=== PATIENT | female | born 1935 | race Caucasian/White ===

== ENCOUNTER 2016-12-24 08:31 | Emergency (ER) | payer MEDICARE, BC ==
[2016-12-24 08:49] VITALS: BP 142/65
--- NOTE | 2016-12-24 09:36 | UC ---
Abdominal Pain Female HPI - HPI Summary HPI Summary: 81 yo female with the onset of diarrhea 36 hours ago Had 4 episodes of large volume liquid stools this was followed by 4 episodes of vomiting no v/d past 24 hours having a hard time tolerating liquids/solids due to nausea no abd pain no f/c - History of Current Complaint Chief Complaint: UCGI Stated Complaint: VOMITING, AND DIARRHEA Time Seen by Provider: 12/24/16 09:26 Hx Obtained From: Patient Onset/Duration: Sudden Onset, Lasting Hours Timing: Constant Severity Initially: Severe Severity Currently: None Pain Intensity: 0 Pain Scale Used: 0-10 Numeric Location: Other - no abd pain Character: Other - NA Aggravating Factor(s): Food - anorexic due to nausea Alleviating Factor(s): Spontaneous Resolution Associated Signs and Symptoms: Positive: Nausea Allergies/Adverse Reactions: Allergies Allergy/AdvReac Type Severity Reaction Status Date / Time Amoxicillin Allergy Mild Hives Verified 10/02/13 14:14 Sulfa Antibiotics Allergy Hives Verified 12/24/16 08:49 PMH/Surg Hx/FS Hx/Imm Hx Previously Healthy: Yes Endocrine History Of: Reports: Thyroid Disease Denies: Diabetes Cardiovascular History Of: Reports: Hypertension Denies: Cardiac Disorders Respiratory History Of: Denies: COPD, Asthma GI/ History Of: Denies: Ulcer Cancer History Of: Denies: Breast Cancer - Surgical History Surgical History: Yes Surgery Procedure, Year, and Place: OOPHERECTOMY RIGHT,BENIGN BREAST BIOPSIES, WRIST GANGLION CYST, APPENDECTOMY - Family History Known Family History: Positive: Hypertension - Social History Alcohol Use: None Substance Use Type: None Smoking Status (MU): Former Smoker Review of Systems Constitutional: Fatigue Skin: Negative Eyes: Negative ENT: Negative Respiratory: Negative Cardiovascular: Negative Gastrointestinal: Other - nausea only , vomiting and diarrrhea have resolved Genitourinary: Negative Motor: Negative Neurovascular: Negative Musculoskeletal: Negative Neurological: Negative Psychological: Negative All Other Systems Reviewed And Are Negative: Yes Physical Exam Triage Information Reviewed: Yes Appearance: Well-Appearing, No Pain Distress, Well-Nourished Vital Signs: Initial Vital Signs Temp 97.6 F 12/24/16 08:47 Pulse 81 12/24/16 08:47 Resp 18 12/24/16 08:47 BP 142/65 12/24/16 08:47 Pulse Ox 96 12/24/16 08:47 Vital Signs Reviewed: Yes Eyes: Positive: Conjunctiva Clear ENT: Positive: Hearing grossly normal. Negative: Nasal congestion, Nasal drainage, Trismus, Muffled/hoarse voice Neck: Positive: Supple, Nontender Respiratory: Positive: Lungs clear, Normal breath sounds, No respiratory distress, No accessory muscle use Cardiovascular: Positive: RRR, No Murmur Musculoskeletal: Positive: ROM Intact, No Edema Neurological: Positive: Alert Psychological Exam: Normal Skin Exam: Normal Abd Pain Female Course/Dx - Differential Dx/Diagnosis Provider Diagnoses: gastroenteritis Discharge - Discharge Plan Condition: Stable Disposition: HOME Prescriptions: Ondansetron TAB* [Zofran Tab*] 4 mg PO Q6H PRN #10 tab PRN Reason: Nausea Patient Education Materials: Gastroenteritis (ED) Referrals: Sabino Babcock MD [Primary Care Provider] - Additional Instructions: recheck in 24 hours if not able to tolerate liquids/solids better recheck for new or worsening symptoms
[2016-12-24] MEDS ORDERED: Ondansetron ODT TAB* 4 MG PO ONE (09:37)
== END 2016-12-24 10:15 | disposition home or self-care (01) ==
LOC: UCEAST 08:31
DX: K52.9 Noninfective gastroenteritis and colitis, unspecified (principal); I10 Essential (primary) hypertension
CPT/HCPCS: 99202; G0463

== ENCOUNTER 2017-11-28 07:08 | Emergency (ER) | payer MEDICARE, BC ==
[2017-11-28 07:31] VITALS: BP 169/74
--- NOTE | 2017-11-28 08:20 | UC ---
Complaint Female HPI - HPI Summary HPI Summary: 82 yo WF c/o lower abd pressure and LBP associated with foul smelling urine x few days, denies f/c/dysuria but feels similar to prvious UTI - History Of Current Complaint Chief Complaint: UCBackPain Stated Complaint: PRESSURE UPON URINATION Time Seen by Provider: 11/28/17 07:44 Hx Obtained From: Patient ?: Yes Severity Initially: Moderate Severity Currently: Moderate Pain Intensity: 3 Character: Dull Aggravating Factor(s): Urination - Allergies/Home Medications Allergies/Adverse Reactions: Allergies Allergy/AdvReac Type Severity Reaction Status Date / Time amoxicillin Allergy Hives Verified 11/28/17 07:32 Sulfa (Sulfonamide Allergy Hives Verified 11/28/17 07:32 Antibiotics) PMH/Surg Hx/FS Hx/Imm Hx Previously Healthy: Yes - Surgical History Surgical History: Yes Surgery Procedure, Year, and Place: OOPHERECTOMY RIGHT,BENIGN BREAST BIOPSIES, WRIST GANGLION CYST, APPENDECTOMY - Family History Known Family History: Positive: Hypertension - Social History Alcohol Use: None Substance Use Type: None Smoking Status (MU): Former Smoker Review of Systems Constitutional: Negative Skin: Negative Eyes: Negative ENT: Negative Respiratory: Negative Cardiovascular: Negative Gastrointestinal: Negative Genitourinary: Other - lower abd pain Motor: Negative Neurovascular: Negative Musculoskeletal: Negative Neurological: Negative Psychological: Negative All Other Systems Reviewed And Are Negative: Yes Physical Exam Triage Information Reviewed: Yes Appearance: Well-Appearing Vital Signs: Initial Vital Signs Temp 36.1 C 11/28/17 07:29 Pulse 88 11/28/17 07:29 Resp 16 11/28/17 07:29 BP 169/74 11/28/17 07:29 Pulse Ox 98 11/28/17 07:29 Eye Exam: Normal ENT Exam: Normal Dental Exam: Normal Neck exam: Normal Neck: Positive: 1 Respiratory Exam: Normal Cardiovascular Exam: Normal Abdomen Description: Positive: Soft, Other: - suprapubic tenderness. Negative: CVA Tenderness (R), CVA Tenderness (L) Musculoskeletal Exam: Normal Neurological Exam: Normal Psychological Exam: Normal Skin Exam: Normal Complaint Female Dx - Course Course Of Treatment: UA positive for trace blood, elevated pH of 7, foul smelling - Differential Dx/Diagnosis Differential Diagnosis/HQI/PQRI: Urinary Tract Infection Provider Diagnoses: Acute cystitis. Elevated BP in acute illness Discharge - Discharge Plan Condition: Stable Disposition: HOME Prescriptions: Ciprofloxacin TAB* [Cipro 500 MG TAB*] 500 mg PO BID 7 Days #14 tab Patient Education Materials: Urinary Tract Infection in Older Adults (ED) Referrals: Sabino Babcock MD [Primary Care Provider] - Additional Instructions: go to ER if symptoms worsen
--- NOTE | 2017-11-29 16:05 | PN ---
Progress Note - Progress Note Date of Service: 11/29/17 Note: Cultures returned no growth, OK to stop abx/ cipro, nurse to call patient. - Jasmyne Lin PAC
== END 2017-11-28 08:22 | disposition home or self-care (01) ==
LOC: UCEAST 07:08
DX: N30.00 Acute cystitis without hematuria (principal); R03.0 Elevated blood-pressure reading, without diagnosis of hypertension; Z87.891 Personal history of nicotine dependence; Z88.3 Allergy status to other anti-infective agents; Z88.0 Allergy status to penicillin
CPT/HCPCS: 81003; 87086; 99212; G0463

== ENCOUNTER 2018-12-17 07:50 | Emergency (ER) | payer MEDICARE, BC ==
[2018-12-17 07:57] VITALS: BP 152/70
--- NOTE | 2018-12-17 09:04 | UC ---
Complaint Female HPI - HPI Summary HPI Summary: Woke up at 5 AM today with dysuria, frequency and urgency. No fever, nausea, back pain. - History Of Current Complaint Chief Complaint: UCGU Stated Complaint: URINARY COMPLAINT Time Seen by Provider: 12/17/18 08:41 Hx Obtained From: Patient Onset/Duration: Gradual Onset, Lasting Hours, Still Present Timing: Constant Severity Initially: Moderate Severity Currently: Moderate Pain Intensity: 4 Pain Scale Used: 0-10 Numeric Character: Burning Aggravating Factor(s): Urination Alleviating Factor(s): Nothing Associated Signs And Symptoms: Negative: Fever, Back Pain, Vaginal Bleeding/ Discharge, Nausea - Allergies/Home Medications Allergies/Adverse Reactions: Allergies Allergy/AdvReac Type Severity Reaction Status Date / Time amoxicillin Allergy Hives Verified 12/17/18 07:57 Sulfa (Sulfonamide Allergy Hives Verified 12/17/18 07:57 Antibiotics) PMH/Surg Hx/FS Hx/Imm Hx Endocrine History: Hypothyroidism Cardiovascular History: Hypertension - Surgical History Surgical History: Yes Surgery Procedure, Year, and Place: OOPHERECTOMY RIGHT,BENIGN BREAST BIOPSIES, WRIST GANGLION CYST, APPENDECTOMY - Family History Known Family History: Positive: Hypertension - Social History Alcohol Use: None Substance Use Type: None Smoking Status (MU): Former Smoker Review of Systems All Other Systems Reviewed And Are Negative: Yes Constitutional: Positive: Negative Respiratory: Positive: Negative Cardiovascular: Positive: Negative Gastrointestinal: Positive: Negative Genitourinary: Positive: Dysuria, Frequency, Urgency Physical Exam Triage Information Reviewed: Yes Appearance: Well-Appearing, No Pain Distress, Well-Nourished Vital Signs: Initial Vital Signs Temp 97.4 F 12/17/18 07:54 Pulse 88 12/17/18 07:54 Resp 18 12/17/18 07:54 BP 152/70 12/17/18 07:54 Pulse Ox 97 12/17/18 07:54 Laboratory Tests 12/17/18 08:30 POC Urine Color Yellow POC Urine Clarity Cloudy POC Urine pH 6.0 POC Ur Specif [place] 1.020 POC Urine Protein 1+ A POC Ur Glucose (UA) Negative POC Urine Ketones Negative POC Urine Blood 3+ A POC Urine Nitrite Negative POC Urine Bilirubin Negative POC Urine Urobilinogen 0.2 POC U Leukocyte Esteras 3+ A Vital Signs Reviewed: Yes Eyes: Positive: Conjunctiva Clear ENT: Positive: Hearing grossly normal Neck: Positive: Supple Respiratory: Positive: No respiratory distress, No accessory muscle use Cardiovascular: Positive: Pulses Normal Abdomen Description: Positive: Nontender, Soft. Negative: CVA Tenderness (R), CVA Tenderness (L), Distended, Guarding Musculoskeletal: Positive: No Edema Neurological: Positive: Alert Psychological: Positive: Age Appropriate Behavior Skin: Negative: Rashes Complaint Female Dx - Differential Dx/Diagnosis Provider Diagnosis: UTI (urinary tract infection) Discharge - Sign-Out/Discharge Documenting (check all that apply): Patient Departure All imaging exams completed and their final reports reviewed: No Studies - Discharge Plan Condition: Stable Disposition: HOME Prescriptions: Ciprofloxacin TAB* [Cipro 500 MG TAB*] 500 mg PO BID #10 tab Phenazopyridine TAB* [Pyridium TAB*] 200 mg PO TID #6 tab Patient Education Materials: Urinary Tract Infection in Women (ED) Referrals: Sabino Babcock MD [Primary Care Provider] - If Needed Additional Instructions: TAKE THE ANTIBIOTICS TWICE DAILY TO COVER FOR UTI. URINE WILL BE SENT FOR CULTURE. WE WILL CALL YOU IF YOUR MEDICATION NEEDS TO BE ADJUSTED. CONSIDER DISCUSSING WITH YOUR PCP/UROLOGIST WHETHER OR NOT YOUR MEDICINE FOR OVERACTIVE BLADDER MAY BE INCREASING YOUR RISK FOR DEVELOPING RECURRENT UTI. - Billing Disposition and Condition Condition: STABLE Disposition: Home
--- NOTE | 2018-12-18 17:22 | UC ---
- Progress Note Progress Note: 12/18/2018 Urine culture: no growth Please call back patient and notify her of result. Advised to stop Ciprofloxacin PO Thank you Susan Lorenzo PA-C Course/Dx - Diagnoses Provider Diagnoses: UTI (urinary tract infection) Discharge - Sign-Out/Discharge Documenting (check all that apply): Post-Discharge Follow Up All imaging exams completed and their final reports reviewed: No Studies - Discharge Plan Condition: Stable Disposition: HOME Prescriptions: Ciprofloxacin TAB* [Cipro 500 MG TAB*] 500 mg PO BID #10 tab Phenazopyridine TAB* [Pyridium TAB*] 200 mg PO TID #6 tab Patient Education Materials: Urinary Tract Infection in Women (ED) Referrals: Sabino Babcock MD [Primary Care Provider] - If Needed Additional Instructions: TAKE THE ANTIBIOTICS TWICE DAILY TO COVER FOR UTI. URINE WILL BE SENT FOR CULTURE. WE WILL CALL YOU IF YOUR MEDICATION NEEDS TO BE ADJUSTED. CONSIDER DISCUSSING WITH YOUR PCP/UROLOGIST WHETHER OR NOT YOUR MEDICINE FOR OVERACTIVE BLADDER MAY BE INCREASING YOUR RISK FOR DEVELOPING RECURRENT UTI. - Billing Disposition and Condition Condition: STABLE Disposition: Home
== END 2018-12-17 09:10 | disposition home or self-care (01) ==
LOC: UCEAST 07:50
DX: N39.0 Urinary tract infection, site not specified (principal); I10 Essential (primary) hypertension; Z88.0 Allergy status to penicillin; Z88.2 Allergy status to sulfonamides; Z87.891 Personal history of nicotine dependence
CPT/HCPCS: 81003; 87086; 99212; G0463

== ENCOUNTER 2019-02-07 08:57 | Emergency (ER) | payer MEDICARE, BC ==
[2019-02-07 09:07] VITALS: BP 114/63
--- NOTE | 2019-02-07 09:29 | UC ---
General HPI - HPI Summary HPI Summary: Here c/o progressively worsening left wrist pain. Has osteoarthritis and is followed by Dr. Nails. Pain on lateral side has gotten significantly worse and has limited her range of motion and ability to do things. Denies any trauma or any specific overuse injury. meds; reviewed - History of Current Complaint Chief Complaint: UCUpperExtremity Stated Complaint: LT WRIST INJURY Time Seen by Provider: 02/07/19 09:22 Pain Intensity: 9 - Allergy/Home Medications Allergies/Adverse Reactions: Allergies Allergy/AdvReac Type Severity Reaction Status Date / Time amoxicillin Allergy Hives Verified 02/07/19 09:07 Sulfa (Sulfonamide Allergy Hives Verified 02/07/19 09:07 Antibiotics) PMH/Surg Hx/FS Hx/Imm Hx Previously Healthy: Yes Endocrine History: Hypothyroidism Cardiovascular History: Hypertension - Surgical History Surgical History: Yes Surgery Procedure, Year, and Place: OOPHERECTOMY RIGHT,BENIGN BREAST BIOPSIES, WRIST GANGLION CYST, APPENDECTOMY - Family History Known Family History: Positive: Hypertension - Social History Alcohol Use: None Substance Use Type: None Smoking Status (MU): Former Smoker Review of Systems All Other Systems Reviewed And Are Negative: Yes Musculoskeletal: Positive: Decreased ROM Physical Exam Triage Information Reviewed: Yes Appearance: Well-Appearing Vital Signs: Initial Vital Signs Temp 97.8 F 02/07/19 09:05 Pulse 84 02/07/19 09:05 Resp 17 02/07/19 09:05 BP 114/63 02/07/19 09:05 Pulse Ox 100 02/07/19 09:05 Vital Signs Reviewed: Yes Musculoskeletal: Positive: Other: - left wrist, mild edema and pain with palpation over ulnar carpal region, limited ROM due to pain. good radial ulnar pulses. Good hand and digit movement. Diagnostics - Radiology left wrist Radiology Interpretation Completed By: Radiologist Summary of Radiographic Findings: Osteopenia, osteoarthritis, no acute fracture , but could have occult fracture Course/Dx - Course Course Of Treatment: This is an 83 yr old with left wrist pain Left wrist xray no over fracture Wrist sprain - ?occult fracture Plan Recommed wearing brace during the day as tolerated Continue TYlenol as needed for pain Start Naproxen 2x/day - take with food Recommend follow up with orthopedics if pain persists - Diagnoses Provider Diagnosis: Wrist pain Discharge - Sign-Out/Discharge Documenting (check all that apply): Patient Departure All imaging exams completed and their final reports reviewed: No Studies - Discharge Plan Condition: Good Disposition: HOME Patient Education Materials: Wrist Sprain (ED) Referrals: Sabino Babcock MD [Primary Care Provider] - Shari Jaimes MD [Medical Doctor] - Additional Instructions: Recommed wearing brace during the day as tolerated Continue TYlenol as needed for pain Start Naproxen 2x/day - take with food Recommend follow up with orthopedics if pain persists - Billing Disposition and Condition Condition: GOOD Disposition: Home
--- NOTE | 2019-02-08 10:30 | UC ---
- Progress Note Progress Note: PROVIDER AWARE OF RADIOLOGIST READING Course/Dx - Diagnoses Provider Diagnoses: Wrist pain Discharge - Sign-Out/Discharge Documenting (check all that apply): Patient Departure All imaging exams completed and their final reports reviewed: Yes - Discharge Plan Condition: Good Disposition: HOME Prescriptions: Naproxen [Naproxen 500 mg tab] 500 mg PO BID #28 tablet Patient Education Materials: Wrist Sprain (ED) Referrals: Sabino Babcock MD [Primary Care Provider] - Shari Jaimes MD [Medical Doctor] - Additional Instructions: Recommed wearing brace during the day as tolerated Continue TYlenol as needed for pain Start Naproxen 2x/day - take with food Recommend follow up with orthopedics if pain persists - Billing Disposition and Condition Condition: GOOD Disposition: Home
== END 2019-02-07 10:12 | disposition home or self-care (01) ==
LOC: UCEAST 08:57
DX: M25.532 Pain in left wrist (principal); M19.90 Unspecified osteoarthritis, unspecified site; I10 Essential (primary) hypertension; Z88.0 Allergy status to penicillin; Z88.2 Allergy status to sulfonamides
CPT/HCPCS: 99213; G0463

== ENCOUNTER 2019-04-27 07:06 | Emergency (ER) | payer MEDICARE, BC ==
--- OUTSIDE RECORDS SUMMARY | 2019-04-27 07:12 | XMS REPORT | Continuity of Care Document ---
:1935 External Reference #:[id number] Author Name Ban Collins Care Team Providers Name Role Phone Sabino Babcock MD Primary Care Physician Unavailable Payers Date Identification Numbers Payment Provider Subscriber Policy Number: [id number] Medicare Zoe Roe PayID: [id number] [address] [place] [address] Policy Number: [id number] [employer] Zoe Roe PayID: [id number] [address] [address] [place] [address] Family History Date Family Member(s) Observation Comments General Coronary Artery Disease (CAD) Father Rheumatoid arthritis Father age 84 Mother Heart Disease Mother age 75 Social History Type Date Description Comments Sex Unknown Marital Status Lives With Occupation Retired Tobacco Use Start: Unknown End: Former Cigarette Smoker quit 1963 Unknown Smoking Status Reviewed: 04/12/19 Former Cigarette Smoker quit 1963 ETOH Use Denies alcohol use Recreational Drug Use Never Used Drugs Tobacco Use Start: Unknown End: Patient is a former quit smoking at age Unknown smoker 30 Exercise Type/Frequency Exercises regularly Allergies, Adverse Reactions, Alerts Active Allergies Reaction Severity Comments Date Sulfa Antibiotics 11/19/2014 Amoxil 11/19/2014 Trimox 11/19/2014 Statins 11/19/2014 Medications Active Medications SIG Qnty Indications Ordering Provider Date Vitamin B12 1 by mouth every 90tabs E53.9 Christiane Fernandez, 05/11/2018 1000mcg day DELI COOK Tablets ER Meclizine HCL please once or 30tabs A88.1 Mirza Nails, 07/28/2017 25mg twice daily daily M.D. Tablets as needed for vertigo Nasonex 2 sprays to each Unknown 50mcg/Act nostril twice Suspension daily prn Synthroid 1 by mouth every Unknown 100mcg day Tablets Dyazide 1 by mouth every Unknown 37.5-25mg day as needed Capsules Detrol 1 by mouth every Unknown 2mg Tablets day Acyclovir 1 by mouth daily Unknown 200mg Capsules Vagifem by way of vagina Unknown 10mcg Tablets twice a week (with applicator) Vit D po qd Unknown 1000Iu History Medications Hydroxychloroquine take one tablet 120tabs M35.3 Zsofia 10/24/2018 - Sulfate by mouth daily [facility] 10/30/2018 200mg Tablets for 1 week then 1 tab twice a day Prednisone 2 tabs po daily 30tabs Zsofia 08/04/2018 - 10mg Tablets for 7 days, then [facility] 08/10/2018 reduce to 1 tab daily until follow up visit Prednisone 2 tab po daily 90tabs M35.3 Zsofia 05/11/2018 - 1mg Tablets for 4 weeks, then [facility] 08/10/2018 1 tab daily until next visit Prednisone take 1 tab po 14tabs Zsofia 05/08/2018 - 5mg Tablets daily until [facility] 08/10/2018 follow up visit Prednisone 2 tabs by mouth 90tabs M35.3 Zsofia 03/30/2018 - 1mg Tablets every day for 4 [facility] 05/11/2018 week, then reduce to 1 tab daily until next visit Prednisone take 3 tabs by M35.3 Zsofia 02/27/2018 - 1mg Tablets mouth until next [facility] 03/30/2018 visit in 4 weeks Vitamin B Complex take 1 tab po q 90tabs E53.9 Zsofia 02/27/2018 - Tablets day [facility] 05/11/2018 Prednisone 4 tabs by mouth 90tabs M35.3 Zsofia 01/23/2018 - 1mg Tablets until next visit [facility] 02/27/2018 Prednisone take 1 tab po for 7tabs M35.3 Zsofia 01/09/2018 - 5mg Tablets 1 week then MOSES Fernandez 03/30/2018 continue on 4 mg/day until next visit Prednisone take 1 tab daily 30tabs Mirza 07/28/2017 - 10mg Tablets Latoya Nails 12/12/2017 Prednisone Please take 3 Mirza 06/15/2017 - 5mg Tablets tabs daily for 2 Latoya Nails 07/28/2017 weeks then 2 tabs daily ongoing Prednisone take 2 tabs daily 90tabs Mirza 05/12/2017 - 10mg Tablets ongoing (pt. is Latoya Nails 06/15/2017 taking 15mg/day) Prednisone Please take 4 90tabs Mirza 05/11/2017 - 5mg Tablets tabs daily for 5 Latoya Nails 05/12/2017 days then 3 daily for 5 days then 2 daily for 5 days then 1 by mouth every day ongoing Prednisone Please take 5 360tabs Mirza 10/06/2016 - 1mg Tablets tabs daily, taper Latoya Nails 05/11/2017 by 1mg per month Potassium Chloride Vanesa take one 14tabs Mirza 09/16/2016 - ER capsule/tablet Latoya Nails 10/06/2016 10Meq Tablets ER daily by mouth Cyanocobalamin sq once weekly; 75ml Mirza 09/16/2016 - 1000mcg/ML please provide Latoya Nails 09/16/2016 Solution appropriate needle and syringes for injection Cyanocobalamin take one 90tabs Mirza 09/16/2016 - 2500mcg Tablets capsule/tablet Latoya Nails 02/27/2018 Sub daily by mouth Prednisone 1 by mouth every 90tabs Mirza 09/08/2016 - 5mg Tablets day (after Latoya Nails 10/06/2016 tapering steroids down to 5mg daily Citracal/Vitamin D 1 by mouth every Unknown - day 12/12/2017 [id number] Tablets Prednisone taking 9 mg daily Unknown - 1mg Tablets as of 09/08/16, 09/08/2016 tapering by 1 mg q week Prednisone 4 by mouth every Unknown - 1mg Tablets day 03/30/2018 Ciprofloxacin SAJI Parsons, - 500mg Tablets MD Castillo 03/30/2018 Medications Administered in Office Medication SIG Qnty Indications Ordering Provider Date Technetium TC 99M TetrEd richard M.D. 12/04/2014 Per Unit Dose Up To 40 Millicuries Injection Immunizations CPT Code Status Date Vaccine Lot # [id number] Given 07/25/2017 Influenza Virus Vaccine, Quadrivalent, Split, Preservative Free Vital Signs Date Vital Result Comment 04/12/2019 8:51am Height 60 inches 5'0" Weight 148.00 lb Heart Rate 79 /min BP Systolic Sitting 131 mmHg BP Diastolic Sitting 75 mmHg BMI (Body Mass Index) 28.9 kg/m2 12/11/2018 2:46pm Height 60 inches 5'0" Weight 146.38 lb Heart Rate 79 /min BP Systolic 134 mmHg BP Diastolic 760 mmHg Body Temperature 97.7 F O2 % BldC Oximetry 95 % BMI (Body Mass Index) 28.6 kg/m2 10/24/2018 8:08am Height 60 inches 5'0" Weight 143.25 lb Heart Rate 85 /min BP Systolic Sitting 124 mmHg BP Diastolic Sitting 76 mmHg Pain Level 2 O2 % BldC Oximetry 97 % BMI (Body Mass Index) 28.0 kg/m2 08/10/2018 1:14pm Height 60 inches 5'0" Weight 146.00 lb Heart Rate 93 /min BP Systolic Sitting 130 mmHg BP Diastolic Sitting 78 mmHg O2 % BldC Oximetry 97 % BMI (Body Mass Index) 28.5 kg/m2 07/10/2018 9:25am Height 60 inches 5'0" Weight 146.00 lb Heart Rate 84 /min BP Systolic 126 mmHg BP Diastolic 68 mmHg Pain Level 0 O2 % BldC Oximetry 95 % BMI (Body Mass Index) 28.5 kg/m2 05/11/2018 9:00am Height 60 inches 5'0" Weight 148.00 lb Heart Rate 82 /min BP Systolic Sitting 130 mmHg BP Diastolic Sitting 72 mmHg O2 % BldC Oximetry 94 % BMI (Body Mass Index) 28.9 kg/m2 03/30/2018 7:59am Height 60 inches 5'0" Weight 149.00 lb Heart Rate 77 /min BP Systolic Sitting 128 mmHg BP Diastolic Sitting 78 mmHg O2 % BldC Oximetry 97 % BMI (Body Mass Index) 29.1 kg/m2 02/27/2018 9:53am Height 60 inches 5'0" Weight 150.38 lb Heart Rate 73 /min BP Systolic Sitting 118 mmHg BP Diastolic Sitting 78 mmHg Pain Level 0 O2 % BldC Oximetry 96 % BMI (Body Mass Index) 29.4 kg/m2 01/23/2018 9:47am Height 60 inches 5'0" Weight 149.00 lb Heart Rate 74 /min BP Systolic Sitting 118 mmHg BP Diastolic Sitting 74 mmHg Pain Level 1 O2 % BldC Oximetry 98 % BMI (Body Mass Index) 29.1 kg/m2 01/09/2018 10:16am Height 60 inches 5'0" Weight 150.00 lb Heart Rate 76 /min BP Systolic Sitting 119 mmHg BP Diastolic Sitting 73 mmHg Pain Level 3 O2 % BldC Oximetry 97 % BMI (Body Mass Index) 29.3 kg/m2 12/12/2017 10:03am Weight 150.00 lb Heart Rate 89 /min BP Systolic Sitting 124 mmHg BP Diastolic Sitting 64 mmHg O2 % BldC Oximetry 94 % 10/20/2017 10:44am Heart Rate 92 /min 10/20/2017 9:54am Weight 157.38 lb Heart Rate 100 /min BP Systolic Sitting 128 mmHg BP Diastolic Sitting 80 mmHg O2 % BldC Oximetry 96 % 09/15/2017 10:50am Height 60 inches 5'0" Weight 157.50 lb Heart Rate 90 /min BP Systolic Sitting 140 mmHg BP Diastolic Sitting 78 mmHg Respiratory Rate 14 /min Pain Level 0 BMI (Body Mass Index) 30.8 kg/m2 07/28/2017 4:09pm Height 60 inches 5'0" Weight 152.00 lb Heart Rate 92 /min BP Systolic Sitting 155 mmHg BP Diastolic Sitting 90 mmHg Respiratory Rate 14 /min Pain Level 0 BMI (Body Mass Index) 29.7 kg/m2 06/15/2017 11:34am Height 60 inches 5'0" Weight 150.00 lb Heart Rate 70 /min BP Systolic Sitting 151 mmHg BP Diastolic Sitting 71 mmHg Respiratory Rate 14 /min Pain Level 1 BMI (Body Mass Index) 29.3 kg/m2 05/13/2017 11:21am Height 60 inches 5'0" Weight 154.00 lb Heart Rate 78 /min BP Systolic 110 mmHg BP Diastolic 64 mmHg Respiratory Rate 18 /min Body Temperature 97.7 F BMI (Body Mass Index) 30.1 kg/m2 05/11/2017 8:27am Height 60 inches 5'0" Weight 154.00 lb Heart Rate 80 /min BP Systolic Sitting 116 mmHg BP Diastolic Sitting 64 mmHg Respiratory Rate 14 /min Pain Level 1 BMI (Body Mass Index) 30.1 kg/m2 02/08/2017 8:55am Height 60 inches 5'0" Weight 155.00 lb Heart Rate 78 /min BP Systolic Sitting 137 mmHg BP Diastolic Sitting 69 mmHg Body Temperature 97.1 F Pain Level 0 BMI (Body Mass Index) 30.3 kg/m2 12/06/2016 11:06am Height 60 inches 5'0" Weight 157.00 lb Heart Rate 90 /min BP Systolic Sitting 144 mmHg BP Diastolic Sitting 74 mmHg Respiratory Rate 14 /min Body Temperature 97.6 F BMI (Body Mass Index) 30.7 kg/m2 10/06/2016 3:34pm Height 60 inches 5'0" Weight 156.44 lb Heart Rate 96 /min BP Systolic Sitting 130 mmHg BP Diastolic Sitting 70 mmHg Respiratory Rate 14 /min Body Temperature 96.7 F Pain Level 1 BMI (Body Mass Index) 30.5 kg/m2 09/08/2016 8:32am Height 60 inches 5'0" Weight 159.00 lb Heart Rate 92 /min BP Systolic Sitting 128 mmHg BP Diastolic Sitting 70 mmHg Body Temperature 97.5 F Pain Level 1 BMI (Body Mass Index) 31.0 kg/m2 01/31/2015 7:59am Height 60 inches 5'0" Weight 151.50 lb w/o shoes Heart Rate 78 /min BP Systolic Sitting 136 mmHg Ra, reg cuff BP Diastolic Sitting 82 mmHg Ra, reg cuff BP Systolic Standing 132 mmHg Ra, reg cuff BP Diastolic Standing 76 mmHg Ra, reg cuff Respiratory Rate 16 /min BMI (Body Mass Index) 29.6 kg/m2 Ejection Fraction 55-60% 11/29/2014 11/29/2014 12:43pm Height 60 inches 5'0" Weight 154.00 lb w/o shoes Heart Rate 102 /min reg BP Systolic 132 mmHg LA, reg cuff sitting BP Diastolic 82 mmHg LA, reg cuff sitting BP Systolic Sitting 130 mmHg Ra, reg cuff BP Diastolic Sitting 90 mmHg Ra, reg cuff BP Systolic Standing 128 mmHg Ra BP Diastolic Standing 80 mmHg Ra Respiratory Rate 20 /min BMI (Body Mass Index) 30.1 kg/m2 Results Test Date Facility Test Result H/L Range Note CBC Auto Diff 04/09/2019 [facility] White Blood 11.6 10^3/uL High 3.5-10.[address] [place] [address] [phone] Red Blood Count 4.64 10^6/uL Normal 3.70-4.87 Hemoglobin 12.5 g/dL Normal 12.0-16.0 Hematocrit 38 % Normal 35-47 Mean Corpuscular Volume 82 fL Normal 80-97 Mean Corpuscular Hemoglobin 27 pg Normal 27-31 Mean Corpuscular HGB Conc 33 g/dL Normal 31-36 Red Cell Distribution Width 14 % Normal 10-15 Platelet Count 314 10^3/uL Normal 150-450 Mean Platelet Volume 8.3 fL Normal 7.4-10.4 Abs Neutrophils 6.3 10^3/uL Normal 1.5-7.7 Abs Lymphocytes 3.7 10^3/uL Normal 1.0-4.8 Abs Monocytes 1.1 10^3/uL High 0-0.8 Abs Eosinophils 0.3 10^3/uL Normal 0-0.6 Abs Basophils 0.2 10^3/uL Normal 0-0.2 Abs Nucleated RBC 0.0 10^3/uL Granulocyte % 54.4 % Lymphocyte % 32.0 % Monocyte % 9.6 % Eosinophil % 2.7 % Basophil % 1.3 % Nucleated Red Blood Cells % 0.0 Comp Metabolic 04/09/2019 [facility] Sodium 139 mmol/L Normal 135-[address] [place] [address] [phone] Potassium 4.0 mmol/L Normal 3.5-5.0 Chloride 103 mmol/L Normal 101-111 Co2 Carbon Dioxide 28 mmol/L Normal 22-32 Anion Gap 8 mmol/L Normal 2-11 Glucose 101 mg/dL High 70-100 Blood Urea Nitrogen 24 mg/dL Normal 6-24 Creatinine 1.09 mg/dL High 0.51-0.95 BUN/Creatinine Ratio 22.0 High 8-20 Calcium 9.8 mg/dL Normal 8.6-10.3 Total Protein 7.3 g/dL Normal 6.4-8.9 Albumin 4.0 g/dL Normal 3.2-5.2 Globulin 3.3 g/dL Normal 2-4 Albumin/Globulin Ratio 1.2 Normal 1-3 Total Bilirubin 0.30 mg/dL Normal 0.2-1.0 Alkaline Phosphatase 63 U/L Normal 34-104 Alt 15 U/L Normal 7-52 Ast 21 U/L Normal 13-39 Egfr Non- 47.7 >60 Egfr 57.7 >60 1 Laboratory test 04/09/2019 [facility] C Reactive 6.10 mg/L Normal <8.[address] [place] [address] [phone] Erythrocyte Sed Rate 37 mm/Hr High 0-29 CBC Auto 12/08/2018 [facility] White Blood 9.5 10^3/uL Normal 3.5-10.[address] [place] [address] [phone] Red Blood Count 4.64 10^6/uL Normal 3.70-4.87 Hemoglobin 12.6 g/dL Normal 12.0-16.0 Hematocrit 38 % Normal 33-41 Mean Corpuscular Volume 82 fL Normal 80-97 Mean Corpuscular Hemoglobin 27 pg Normal 27-31 Mean Corpuscular HGB Conc 33 g/dL Normal 31-36 Red Cell Distribution Width 15 % Normal 10.5-15 Platelet Count 321 10^3/uL Normal 150-450 Mean Platelet Volume 8.0 fL Normal 7.4-10.4 Abs Neutrophils 4.6 10^3/uL Normal 1.5-7.7 Abs Lymphocytes 3.8 10^3/uL Normal 1.0-4.8 Abs Monocytes 0.8 10^3/uL Normal 0-0.8 Abs Eosinophils 0.3 10^3/uL Normal 0-0.6 Abs Basophils 0.1 10^3/uL Normal 0-0.2 Abs Nucleated RBC 0 10^3/uL Granulocyte % 48.2 % Lymphocyte % 39.4 % Monocyte % 8.7 % Eosinophil % 2.6 % Basophil % 1.1 % Nucleated Red Blood Cells % 0 Comp Metabolic 12/08/2018 [facility] Sodium 138 mmol/L Normal 135-[address] [place] [address] [phone] Potassium 3.7 mmol/L Normal 3.5-5.0 Chloride 101 mmol/L Normal 101-111 Co2 Carbon Dioxide 29 mmol/L Normal 22-32 Anion Gap 8 mmol/L Normal 2-11 Glucose 124 mg/dL High 70-100 Blood Urea Nitrogen 25 mg/dL High 6-24 Creatinine 1.03 mg/dL High 0.51-0.95 BUN/Creatinine Ratio 24.3 High 8-20 Calcium 9.7 mg/dL Normal 8.6-10.3 Total Protein 7.1 g/dL Normal 6.4-8.9 Albumin 4.0 g/dL Normal 3.2-5.2 Globulin 3.1 g/dL Normal 2-4 Albumin/Globulin Ratio 1.3 Normal 1-3 Total Bilirubin 0.30 mg/dL Normal 0.2-1.0 Alkaline Phosphatase 58 U/L Normal 34-104 Alt 16 U/L Normal 7-52 Ast 20 U/L Normal 13-39 Egfr Non- 50.9 >60 Egfr 61.6 >60 2 Laboratory test 12/08/2018 [facility] Erythrocyte Sed 46 mm/Hr High 0-30 [address] [place] [address] [phone] C Reactive Protein 5.96 mg/L Normal <8.01 Creatine Kinase(CK) 43 U/L Normal 10-223 CBC Auto 10/21/2018 [facility] White Blood 10.4 10^3/uL Normal 3.5-10.[address] [place] [address] [phone] Red Blood Count 5.01 10^6/uL Normal 4.00-5.40 Hemoglobin 13.3 g/dL Normal 12.0-16.0 Hematocrit 41 % Normal 35-47 Mean Corpuscular Volume 82 fL Normal 80-97 Mean Corpuscular Hemoglobin 27 pg Normal 27-31 Mean Corpuscular HGB Conc 33 g/dL Normal 31-36 Red Cell Distribution Width 15 % Normal 10.5-15 Platelet Count 339 10^3/uL Normal 150-450 Mean Platelet Volume 8.6 fL Normal 7.4-10.4 Abs Neutrophils 5.4 10^3/uL Normal 1.5-7.7 Abs Lymphocytes 3.6 10^3/uL Normal 1.0-4.8 Abs Monocytes 1.2 10^3/uL High 0-0.8 Abs Eosinophils 0.2 10^3/uL Normal 0-0.6 Abs Basophils 0.1 10^3/uL Normal 0-0.2 Abs Nucleated RBC 0 10^3/uL Granulocyte % 52.0 % Lymphocyte % 34.3 % Monocyte % 11.1 % Eosinophil % 1.9 % Basophil % 0.7 % Nucleated Red Blood Cells % 0 Comp Metabolic 10/21/2018 [facility] Sodium 139 mmol/L Normal 135-[address] [place] [address] [phone] Potassium 3.4 mmol/L Low 3.5-5.0 Chloride 101 mmol/L Normal 101-111 Co2 Carbon Dioxide 30 mmol/L Normal 22-32 Anion Gap 8 mmol/L Normal 2-11 Glucose 91 mg/dL Normal 70-100 Blood Urea Nitrogen 27 mg/dL High 6-24 Creatinine 1.02 mg/dL High 0.51-0.95 BUN/Creatinine Ratio 26.5 High 8-20 Calcium 9.4 mg/dL Normal 8.6-10.3 Total Protein 6.9 g/dL Normal 6.4-8.9 Albumin 4.0 g/dL Normal 3.2-5.2 Globulin 2.9 g/dL Normal 2-4 Albumin/Globulin Ratio 1.4 Normal 1-3 Total Bilirubin 0.30 mg/dL Normal 0.2-1.0 Alkaline Phosphatase 61 U/L Normal 34-104 Alt 20 U/L Normal 7-52 Ast 21 U/L Normal 13-39 Egfr Non- 51.5 >60 Egfr 62.3 >60 4 Laboratory test 10/21/2018 [facility] Erythrocyte Sed 48 mm/Hr High 0-[address] [place] [address] [phone] C Reactive Protein 9.72 mg/L High <8.01 CBC Auto 08/05/2018 [facility] White Blood 8.7 10^3/uL Normal 3.5-10.[address] [place] [address] [phone] Red Blood Count 4.86 10^6/uL Normal 4.00-5.40 Hemoglobin 12.8 g/dL Normal 12.0-16.0 Hematocrit 39 % Normal 35-47 Mean Corpuscular Volume 80 fL Normal 80-97 Mean Corpuscular Hemoglobin 26 pg Low 27-31 Mean Corpuscular HGB Conc 33 g/dL Normal 31-36 Red Cell Distribution Width 15 % Normal 10.5-15 Platelet Count 296 10^3/uL Normal 150-450 Mean Platelet Volume 8.0 fL Normal 7.4-10.4 Abs Neutrophils 4.8 10^3/uL Normal 1.5-7.7 Abs Lymphocytes 2.8 10^3/uL Normal 1.0-4.8 Abs Monocytes 0.8 10^3/uL Normal 0-0.8 Abs Eosinophils 0.2 10^3/uL Normal 0-0.6 Abs Basophils 0.1 10^3/uL Normal 0-0.2 Abs Nucleated RBC 0 10^3/uL Granulocyte % 55.0 % Normal 38-83 Lymphocyte % 32.1 % Normal 25-47 Monocyte % 9.2 % High 0-7 Eosinophil % 2.7 % Normal 0-6 Basophil % 1.0 % Normal 0-2 Nucleated Red Blood Cells % 0.1 Comp Metabolic 08/05/2018 [facility] Sodium 141 mmol/L Normal 135-[address] [place] [address] [phone] Potassium 3.8 mmol/L Normal 3.5-5.0 Chloride 104 mmol/L Normal 101-111 Co2 Carbon Dioxide 30 mmol/L Normal 22-32 Anion Gap 7 mmol/L Normal 2-11 Glucose 139 mg/dL High 70-100 Blood Urea Nitrogen 27 mg/dL High 6-24 Creatinine 1.17 mg/dL High 0.51-0.95 BUN/Creatinine Ratio 23.1 High 8-20 Calcium 9.9 mg/dL Normal 8.6-10.3 Total Protein 6.8 g/dL Normal 6.4-8.9 Albumin 3.8 g/dL Normal 3.2-5.2 Globulin 3.0 g/dL Normal 2-4 Albumin/Globulin Ratio 1.3 Normal 1-3 Total Bilirubin 0.30 mg/dL Normal 0.2-1.0 Alkaline Phosphatase 53 U/L Normal 34-104 Alt 15 U/L Normal 7-52 Ast 22 U/L Normal 13-39 Egfr Non- 44.0 >60 Egfr 53.2 >60 5 Laboratory test 08/05/2018 [facility] C Reactive 7.29 mg/L Normal <8.01 [address] [place] [address] [phone] Erythrocyte Sed Rate 48 mm/Hr High 0-40 7 CBC Auto 07/07/2018 [facility] White Blood 10.3 10^3/uL Normal 3.5-10.[address] [place] [address] [phone] Red Blood Count 4.93 10^6/uL Normal 4.00-5.40 Hemoglobin 13.1 g/dL Normal 12.0-16.0 Hematocrit 39 % Normal 35-47 Mean Corpuscular Volume 80 fL Normal 80-97 Mean Corpuscular Hemoglobin 27 pg Normal 27-31 Mean Corpuscular HGB Conc 33 g/dL Normal 31-36 Red Cell Distribution Width 15 % Normal 10.5-15 Platelet Count 299 10^3/uL Normal 150-450 Mean Platelet Volume 8.1 um3 Normal 7.4-10.4 Abs Neutrophils 5.9 10^3/uL Normal 1.5-7.7 Abs Lymphocytes 3.2 10^3/uL Normal 1.0-4.8 Abs Monocytes 0.8 10^3/uL Normal 0-0.8 Abs Eosinophils 0.2 10^3/uL Normal 0-0.6 Abs Basophils 0.1 10^3/uL Normal 0-0.2 Abs Nucleated RBC 0 10^3/uL Granulocyte % 57.5 % Normal 38-83 Lymphocyte % 31.4 % Normal 25-47 Monocyte % 7.8 % High 0-7 Eosinophil % 2.1 % Normal 0-6 Basophil % 1.2 % Normal 0-2 Nucleated Red Blood Cells % 0 Comp Metabolic 07/07/2018 [facility] Sodium 140 mmol/L Normal 135-[address] [place] [address] [phone] Potassium 3.3 mmol/L Low 3.5-5.0 Chloride 103 mmol/L Normal 101-111 Co2 Carbon Dioxide 28 mmol/L Normal 22-32 Anion Gap 9 mmol/L Normal 2-11 Glucose 126 mg/dL High 70-100 Blood Urea Nitrogen 21 mg/dL Normal 6-24 Creatinine 1.06 mg/dL High 0.51-0.95 BUN/Creatinine Ratio 19.8 Normal 8-20 Calcium 9.5 mg/dL Normal 8.6-10.3 Total Protein 7.0 g/dL Normal 6.4-8.9 Albumin 3.8 g/dL Normal 3.2-5.2 Globulin 3.2 g/dL Normal 2-4 Albumin/Globulin Ratio 1.2 Normal 1-3 Total Bilirubin 0.30 mg/dL Normal 0.2-1.0 Alkaline Phosphatase 63 U/L Normal 34-104 Alt 18 U/L Normal 7-52 Ast 21 U/L Normal 13-39 Egfr Non- 49.3 >60 Egfr 59.6 >60 8 Laboratory test 07/07/2018 [facility] C Reactive 13.45 mg/L High <8.01 [address] [place] [address] [phone] Erythrocyte Sed Rate 45 mm/Hr High 0-40 10 CBC Auto 05/05/2018 [facility] White Blood 11.6 10^3/uL High 3.5-10.[address] [place] [address] [phone] Red Blood Count 4.69 10^6/uL Normal 4.00-5.40 Hemoglobin 12.3 g/dL Normal 12.0-16.0 Hematocrit 37 % Normal 35-47 Mean Corpuscular Volume 79 fL Low 80-97 Mean Corpuscular Hemoglobin 26 pg Low 27-31 Mean Corpuscular HGB Conc 33 g/dL Normal 31-36 Red Cell Distribution Width 15 % Normal 10.5-15 Platelet Count 314 10^3/uL Normal 150-450 Mean Platelet Volume 8.3 um3 Normal 7.4-10.4 Abs Neutrophils 6.7 10^3/uL Normal 1.5-7.7 Abs Lymphocytes 3.7 10^3/uL Normal 1.0-4.8 Abs Monocytes 0.9 10^3/uL High 0-0.8 Abs Eosinophils 0.2 10^3/uL Normal 0-0.6 Abs Basophils 0.1 10^3/uL Normal 0-0.2 Abs Nucleated RBC 0 10^3/uL Granulocyte % 57.6 % Normal 38-83 Lymphocyte % 31.6 % Normal 25-47 Monocyte % 8.1 % High 0-7 Eosinophil % 1.7 % Normal 0-6 Basophil % 1.0 % Normal 0-2 Nucleated Red Blood Cells % 0 Comp Metabolic 05/05/2018 [facility] Sodium 140 mmol/L Normal 135-[address] [place] [address] [phone] Potassium 3.5 mmol/L Normal 3.5-5.0 Chloride 105 mmol/L Normal 101-111 Co2 Carbon Dioxide 26 mmol/L Normal 22-32 Anion Gap 9 mmol/L Normal 2-11 Glucose 101 mg/dL High 70-100 Blood Urea Nitrogen 25 mg/dL High 6-24 Creatinine 1.02 mg/dL High 0.51-0.95 BUN/Creatinine Ratio 24.5 High 8-20 Calcium 9.6 mg/dL Normal 8.6-10.3 Total Protein 6.9 g/dL Normal 6.4-8.9 Albumin 3.8 g/dL Normal 3.2-5.2 Globulin 3.1 g/dL Normal 2-4 Albumin/Globulin Ratio 1.2 Normal 1-3 Total Bilirubin 0.20 mg/dL Normal 0.2-1.0 Alkaline Phosphatase 58 U/L Normal 34-104 Alt 20 U/L Normal 7-52 Ast 24 U/L Normal 13-39 Egfr Non- 51.5 >60 Egfr 62.3 >60 11 Laboratory test 05/05/2018 [facility] C Reactive 13.58 mg/L High <8.01 [address] [place] [address] [phone] Erythrocyte Sed Rate 65 mm/Hr High 0-40 13 Laboratory test 03/28/2018 [facility] C Reactive 11.89 mg/L High <8.[address] [place] [address] [phone] Erythrocyte Sed Rate 50 mm/Hr High 0-40 Comp Metabolic 03/28/2018 [facility] Sodium 138 mmol/L Normal 135-[address] [place] [address] [phone] Potassium 3.4 mmol/L Low 3.5-5.0 Chloride 101 mmol/L Normal 101-111 Co2 Carbon Dioxide 29 mmol/L Normal 22-32 Anion Gap 8 mmol/L Normal 2-11 Glucose 99 mg/dL Normal 70-100 Blood Urea Nitrogen 24 mg/dL Normal 6-24 Creatinine 0.89 mg/dL Normal 0.51-0.95 BUN/Creatinine Ratio 27.0 High 8-20 Calcium 10.0 mg/dL Normal 8.6-10.3 Total Protein 7.0 g/dL Normal 6.4-8.9 Albumin 3.9 g/dL Normal 3.2-5.2 Globulin 3.1 g/dL Normal 2-4 Albumin/Globulin Ratio 1.3 Normal 1-3 Total Bilirubin 0.30 mg/dL Normal 0.2-1.0 Alkaline Phosphatase 55 U/L Normal 34-104 Alt 17 U/L Normal 7-52 Ast 21 U/L Normal 13-39 Egfr Non- 60.4 >60 Egfr 73.1 >60 14 CBC Auto 03/28/2018 [facility] White Blood 13.3 10^3/uL High 3.5-10.[address] [place] [address] [phone] Red Blood Count 5.01 10^6/uL Normal 4.00-5.40 Hemoglobin 13.2 g/dL Normal 12.0-16.0 Hematocrit 40 % Normal 35-47 Mean Corpuscular Volume 80 fL Normal 80-97 Mean Corpuscular Hemoglobin 26 pg Low 27-31 Mean Corpuscular HGB Conc 33 g/dL Normal 31-36 Red Cell Distribution Width 15 % Normal 10.5-15 Platelet Count 323 10^3/uL Normal 150-450 Mean Platelet Volume 8.1 um3 Normal 7.4-10.4 Abs Neutrophils 8.2 10^3/uL High 1.5-7.7 Abs Lymphocytes 3.6 10^3/uL Normal 1.0-4.8 Abs Monocytes 1.2 10^3/uL High 0-0.8 Abs Eosinophils 0.2 10^3/uL Normal 0-0.6 Abs Basophils 0.1 10^3/uL Normal 0-0.2 Abs Nucleated RBC 0 10^3/uL Granulocyte % 61.8 % Normal 38-83 Lymphocyte % 26.8 % Normal 25-47 Monocyte % 9.0 % High 0-7 Eosinophil % 1.6 % Normal 0-6 Basophil % 0.8 % Normal 0-2 Nucleated Red Blood Cells % 0 Laboratory test 01/20/2018 [facility] C Reactive 9.25 mg/L High < 5.00 [address] [place] [address] [phone] Erythrocyte Sed Rate 48 mm/Hr High 0-40 CBC Auto 01/07/2018 [facility] White Blood 11.1 10^3/uL High 3.5-10.[address] [place] [address] [phone] Red Blood Count 4.71 10^6/uL Normal 4.0-5.4 Hemoglobin 12.5 g/dL Normal 12.0-16.0 Hematocrit 38 % Normal 35-47 Mean Corpuscular Volume 80 fL Normal 80-97 Mean Corpuscular Hemoglobin 27 pg Normal 27-31 Mean Corpuscular HGB Conc 33 g/dL Normal 31-36 Red Cell Distribution Width 15 % Normal 10.5-15 Platelet Count 297 10^3/uL Normal 150-450 Mean Platelet Volume 8.3 um3 Normal 7.4-10.4 Abs Neutrophils 5.9 10^3/uL Normal 1.5-7.7 Abs Lymphocytes 4.0 10^3/uL Normal 1.0-4.8 Abs Monocytes 0.9 10^3/uL High 0-0.8 Abs Eosinophils 0.2 10^3/uL Normal 0-0.6 Abs Basophils 0.1 10^3/uL Normal 0-0.2 Abs Nucleated RBC 0 10^3/uL Granulocyte % 53.1 % Normal 38-83 Lymphocyte % 35.8 % Normal 25-47 Monocyte % 8.2 % High 0-7 Eosinophil % 2.0 % Normal 0-6 Basophil % 0.9 % Normal 0-2 Nucleated Red Blood Cells % 0 Comp Metabolic 01/07/2018 [facility] Sodium 142 mmol/L Normal 139-[address] [place] [address] [phone] Potassium 3.4 mmol/L Low 3.5-5.0 Chloride 101 mmol/L Normal 101-111 Co2 Carbon Dioxide 30 mmol/L Normal 22-32 Anion Gap 11 mmol/L Normal 2-11 Glucose 103 mg/dL High 70-100 Blood Urea Nitrogen 22 mg/dL Normal 6-24 Creatinine 1.02 mg/dL High 0.51-0.95 BUN/Creatinine Ratio 21.6 High 8-20 Calcium 10.2 mg/dL Normal 8.6-10.3 Total Protein 6.5 g/dL Normal 6.4-8.9 Albumin 3.6 g/dL Normal 3.2-5.2 Globulin 2.9 g/dL Normal 2-4 Albumin/Globulin Ratio 1.2 Normal 1-3 Total Bilirubin 0.30 mg/dL Normal 0.2-1.0 Alkaline Phosphatase 46 U/L Normal 34-104 Alt 15 U/L Normal 7-52 Ast 19 U/L Normal 13-39 Egfr Non- 51.6 >60 Egfr 66.4 >60 16 Laboratory test 01/07/2018 [facility] C Reactive 12.38 mg/L High < 5.[address] [place] [address] [phone] Erythrocyte Sed Rate 51 mm/Hr High 0-40 18 Laboratory 01/07/2018 [facility] TSH (Thyroid 0.74 Normal 0.34 -5.[address] Stim Horm) mcIU/[place] [address] [phone] Lipid Profile 01/07/2018 [facility] Triglycerides 199 mg/dL 19 (Trig/Chol/HD L) [place] [address] [phone] Cholesterol 193 mg/dL 20 HDL Cholesterol 40.0 mg/dL 21 LDL Cholesterol 113 mg/dL 22 Laboratory 01/07/2018 [facility] Free T4 (Free 1.02 Normal 0.61-1.12 test finding Thyroxine) ng/[place] [address] [phone] Vitamin D Total 25(Oh) 44.0 ng/mL Normal 20-50 Laboratory test 12/08/2017 [facility] C Reactive 16.90 mg/L High < 5.00 23 [place] [address] [phone] Erythrocyte Sed Rate 62 mm/Hr High 0-40 Comp Metabolic 12/02/2017 [facility] Sodium 138 mmol/L Normal 133-[address] [place] [address] [phone] Potassium 3.8 mmol/L Normal 3.5-5.0 Chloride 99 mmol/L Low 101-111 Co2 Carbon Dioxide 29 mmol/L Normal 22-32 Anion Gap 10 mmol/L Normal 2-11 Glucose 119 mg/dL High 70-100 Blood Urea Nitrogen 16 mg/dL Normal 6-24 Creatinine 0.96 mg/dL High 0.51-0.95 BUN/Creatinine Ratio 16.7 Normal 8-20 Calcium 9.5 mg/dL Normal 8.6-10.3 Total Protein 7.0 g/dL Normal 6.4-8.9 Albumin 3.9 g/dL Normal 3.2-5.2 Globulin 3.1 g/dL Normal 2-4 Albumin/Globulin Ratio 1.3 Normal 1-3 Total Bilirubin 0.40 mg/dL Normal 0.2-1.0 Alkaline Phosphatase 53 U/L Normal 34-104 Alt 15 U/L Normal 7-52 Ast 21 U/L Normal 13-39 Egfr Non- 55.4 >60 Egfr 71.2 >60 24 Laboratory test 12/02/2017 [facility] C Reactive 69.93 mg/L High < 5.00 [address] [place] [address] [phone] CBC Auto Diff 12/02/2017 [facility] White Blood 12.8 High 3.5- 10.[address] Count 10^3/[place] [address] [phone] Red Blood Count 4.88 10^6/uL Normal 4.0-5.4 Hemoglobin 13.0 g/dL Normal 12.0-16.0 Hematocrit 40 % Normal 35-47 Mean Corpuscular Volume 81 fL Normal 80-97 Mean Corpuscular Hemoglobin 27 pg Normal 27-31 Mean Corpuscular HGB Conc 33 g/dL Normal 31-36 Red Cell Distribution Width 15 % Normal 10.5-15 Platelet Count 306 10^3/uL Normal 150-450 Mean Platelet Volume 8.9 um3 Normal 7.4-10.4 Abs Neutrophils 7.4 10^3/uL Normal 1.5-7.7 Abs Lymphocytes 3.7 10^3/uL Normal 1.0-4.8 Abs Monocytes 1.4 10^3/uL High 0-0.8 Abs Eosinophils 0.2 10^3/uL Normal 0-0.6 Abs Basophils 0 10^3/uL Normal 0-0.2 Abs Nucleated RBC 0 10^3/uL Granulocyte % 58.0 % Normal 38-83 Lymphocyte % 28.9 % Normal 25-47 Monocyte % 11.0 % High 0-7 Eosinophil % 1.7 % Normal 0-6 Basophil % 0.4 % Normal 0-2 Nucleated Red Blood Cells % 0.1 Laboratory test 12/02/2017 [facility] Erythrocyte Sed 84 mm/Hr High 0-40 [address] [place] [address] [phone] CBC Auto Diff 10/17/2017 [facility] White Blood 15.8 High 3.5- 10.[address] Count 10^3/[place] [address] [phone] Red Blood Count 4.92 10^6/uL Normal 4.0-5.4 Hemoglobin 13.4 g/dL Normal 12.0-16.0 Hematocrit 40 % Normal 35-47 Mean Corpuscular Volume 81 fL Normal 80-97 Mean Corpuscular Hemoglobin 27 pg Normal 27-31 Mean Corpuscular HGB Conc 34 g/dL Normal 31-36 Red Cell Distribution Width 15 % Normal 10.5-15 Platelet Count 302 10^3/uL Normal 150-450 Mean Platelet Volume 8 um3 Normal 7.4-10.4 Abs Neutrophils 12.5 10^3/uL High 1.5-7.7 Abs Lymphocytes 2.4 10^3/uL Normal 1.0-4.8 Abs Monocytes 0.7 10^3/uL Normal 0-0.8 Abs Eosinophils 0.1 10^3/uL Normal 0-0.6 Abs Basophils 0.1 10^3/uL Normal 0-0.2 Abs Nucleated RBC 0 10^3/uL Granulocyte % 79.1 % Normal 38-83 Lymphocyte % 15.2 % Low 25-47 Monocyte % 4.5 % Normal 1-9 Eosinophil % 0.4 % Normal 0-6 Basophil % 0.8 % Normal 0-2 Nucleated Red Blood Cells % 0 Laboratory test 10/17/2017 [facility] C Reactive 15.94 High < 5.00 [address] Protein mg/[place] [address] [phone] Comp Metabolic 10/17/2017 [facility] Sodium 137 Normal 133- [address] mmol/[place] [address] [phone] Potassium 3.8 mmol/L Normal 3.5-5.0 Chloride 100 mmol/L Low 101-111 Co2 Carbon Dioxide 29 mmol/L Normal 22-32 Anion Gap 8 mmol/L Normal 2-11 Glucose 129 mg/dL High 70-100 Blood Urea Nitrogen 20 mg/dL Normal 6-24 Creatinine 0.96 mg/dL High 0.51-0.95 BUN/Creatinine Ratio 20.8 High 8-20 Calcium 9.4 mg/dL Normal 8.6-10.3 Total Protein 6.9 g/dL Normal 6.4-8.9 Albumin 3.7 g/dL Normal 3.2-5.2 Globulin 3.2 g/dL Normal 2-4 Albumin/Globulin Ratio 1.2 Normal 1-3 Total Bilirubin 0.30 mg/dL Normal 0.2-1.0 Alkaline Phosphatase 51 U/L Normal 34-104 Alt 15 U/L Normal 7-52 Ast 17 U/L Normal 13-39 Egfr Non- 55.4 >60 Egfr 71.2 >60 28 Laboratory test 10/17/2017 [facility] Erythrocyte Sed 53 mm/Hr High 0-[address] [place] [address] [phone] CBC Auto Diff 09/15/2017 [facility] White Blood 14.3 High 3.5- 10.[address] Count 10^3/[place] [address] [phone] Red Blood Count 4.90 10^6/uL Normal 4.0-5.4 Hemoglobin 13.3 g/dL Normal 12.0-16.0 Hematocrit 40 % Normal 35-47 Mean Corpuscular Volume 82 fL Normal 80-97 Mean Corpuscular Hemoglobin 27 pg Normal 27-31 Mean Corpuscular HGB Conc 33 g/dL Normal 31-36 Red Cell Distribution Width 15 % Normal 10.5-15 Platelet Count 284 10^3/uL Normal 150-450 Mean Platelet Volume 8 um3 Normal 7.4-10.4 Abs Neutrophils 10.9 10^3/uL High 1.5-7.7 Abs Lymphocytes 2.4 10^3/uL Normal 1.0-4.8 Abs Monocytes 0.9 10^3/uL High 0-0.8 Abs Eosinophils 0.1 10^3/uL Normal 0-0.6 Abs Basophils 0.1 10^3/uL Normal 0-0.2 Abs Nucleated RBC 0 10^3/uL Granulocyte % 76.3 % Normal 38-83 Lymphocyte % 16.6 % Low 25-47 Monocyte % 6.0 % Normal 1-9 Eosinophil % 0.6 % Normal 0-6 Basophil % 0.5 % Normal 0-2 Nucleated Red Blood Cells % 0 Comp Metabolic 09/15/2017 [facility] Sodium 138 mmol/L Normal 133-[address] [place] [address] [phone] Potassium 3.6 mmol/L Normal 3.5-5.0 Chloride 100 mmol/L Low 101-111 Co2 Carbon Dioxide 27 mmol/L Normal 22-32 Anion Gap 11 mmol/L Normal 2-11 Glucose 110 mg/dL High 70-100 Blood Urea Nitrogen 30 mg/dL High 6-24 Creatinine 0.96 mg/dL High 0.51-0.95 BUN/Creatinine Ratio 31.3 High 8-20 Calcium 9.3 mg/dL Normal 8.6-10.3 Total Protein 7.0 g/dL Normal 6.4-8.9 Albumin 3.7 g/dL Normal 3.2-5.2 Globulin 3.3 g/dL Normal 2-4 Albumin/Globulin Ratio 1.1 Normal 1-3 Total Bilirubin 0.30 mg/dL Normal 0.2-1.0 Alkaline Phosphatase 48 U/L Normal 34-104 Alt 15 U/L Normal 7-52 Ast 15 U/L Normal 13-39 Egfr Non- 55.4 >60 Egfr 71.2 >60 29 Laboratory test 09/15/2017 [facility] C Reactive 12.88 mg/L High < 5.00 [address] [place] [address] [phone] Erythrocyte Sed Rate 51 mm/Hr High 0-40 Laboratory test 08/17/2017 [facility] Erythrocyte Sed 45 mm/Hr High 0-[address] [place] [address] [phone] C Reactive Protein 18.74 mg/L High < 5.00 31 Laboratory test 07/22/2017 [facility] C Reactive 15.70 mg/L High < 5.00 [address] [place] [address] [phone] Erythrocyte Sed Rate 50 mm/Hr High 0-40 33 CBC Auto 07/22/2017 [facility] White Blood 15.2 10^3/uL High 3.5-10.[address] [place] [address] [phone] Red Blood Count 4.66 10^6/uL Normal 4.0-5.4 Hemoglobin 12.7 g/dL Normal 12.0-16.0 Hematocrit 38 % Normal 35-47 Mean Corpuscular Volume 82 fL Normal 80-97 Mean Corpuscular Hemoglobin 27 pg Normal 27-31 Mean Corpuscular HGB Conc 33 g/dL Normal 31-36 Red Cell Distribution Width 15 % Normal 10.5-15 Platelet Count 312 10^3/uL Normal 150-450 Mean Platelet Volume 8 um3 Normal 7.4-10.4 Abs Neutrophils 10.8 10^3/uL High 1.5-7.7 Abs Lymphocytes 3.1 10^3/uL Normal 1.0-4.8 Abs Monocytes 1.0 10^3/uL High 0-0.8 Abs Eosinophils 0.2 10^3/uL Normal 0-0.6 Abs Basophils 0.1 10^3/uL Normal 0-0.2 Abs Nucleated RBC 0 10^3/uL Granulocyte % 71.0 % Normal 38-83 Lymphocyte % 20.4 % Low 25-47 Monocyte % 6.7 % Normal 1-9 Eosinophil % 1.1 % Normal 0-6 Basophil % 0.8 % Normal 0-2 Nucleated Red Blood Cells % 0 Vitamin B12 07/22/2017 [facility] Vitamin B12 > 1450 High 180- 914 34 [address] pg/[place] [address] [phone] Folic Acid (Folate) 10.51 ng/mL >3.99 35 Basic Metabolic 07/22/2017 [facility] Sodium 138 mmol/L Normal 133-[address] [place] [address] [phone] Potassium 3.5 mmol/L Normal 3.5-5.0 Chloride 101 mmol/L Normal 101-111 Co2 Carbon Dioxide 28 mmol/L Normal 22-32 Anion Gap 9 mmol/L Normal 2-11 Glucose 115 mg/dL High 70-100 Blood Urea Nitrogen 23 mg/dL Normal 6-24 Creatinine 0.96 mg/dL High 0.51-0.95 BUN/Creatinine Ratio 24.0 High 8-20 Calcium 9.6 mg/dL Normal 8.6-10.3 Egfr Non- 55.4 >60 Egfr 71.2 >60 36 Laboratory test 06/10/2017 [facility] Erythrocyte Sed 35 mm/Hr Normal 0-40 [address] [place] [address] [phone] C Reactive Protein 5.22 mg/L High < 5.00 38 Laboratory test 05/13/2017 [facility] Surgical SEE RESULT [address] [place] [address] [phone] Laboratory test 05/11/2017 [facility] Erythrocyte Sed 63 mm/Hr High 0-40 [address] [place] [address] [phone] C Reactive Protein 16.49 mg/L High < 5.00 41 CBC Auto 05/11/2017 [facility] White Blood 10.4 10^3/uL Normal 3.5-10.[address] [place] [address] [phone] Red Blood Count 4.57 10^6/uL Normal 4.0-5.4 Hemoglobin 12.2 g/dL Normal 12.0-16.0 Hematocrit 37 % Normal 35-47 Mean Corpuscular Volume 82 fL Normal 80-97 Mean Corpuscular Hemoglobin 27 pg Normal 27-31 Mean Corpuscular HGB Conc 33 g/dL Normal 31-36 Red Cell Distribution Width 15 % Normal 10.5-15 Platelet Count 290 10^3/uL Normal 150-450 Mean Platelet Volume 8 um3 Normal 7.4-10.4 Abs Neutrophils 5.6 10^3/uL Normal 1.5-7.7 Abs Lymphocytes 3.3 10^3/uL Normal 1.0-4.8 Abs Monocytes 1.1 10^3/uL High 0-0.8 Abs Eosinophils 0.2 10^3/uL Normal 0-0.6 Abs Basophils 0.1 10^3/uL Normal 0-0.2 Abs Nucleated RBC 0.01 10^3/uL Normal Granulocyte % 53.9 % Normal 38-83 Lymphocyte % 32.2 % Normal 25-47 Monocyte % 10.9 % High 1-9 Eosinophil % 2.3 % Normal 0-6 Basophil % 0.7 % Normal 0-2 Nucleated Red Blood Cells % 0.1 Normal Vitamin B12 05/11/2017 [facility] Vitamin B12 1129 pg/mL High 180-914 42 And Folate [address] [place] [address] [phone] Folic Acid (Folate) 10.27 ng/mL Normal >3.99 43 Basic Metabolic 05/11/2017 [facility] Sodium 137 mmol/L Normal 133-[address] [place] [address] [phone] Potassium 3.7 mmol/L Normal 3.5-5.0 Chloride 101 mmol/L Normal 101-111 Co2 Carbon Dioxide 30 mmol/L Normal 22-32 Anion Gap 6 mmol/L Normal 2-11 Glucose 102 mg/dL High 70-100 Blood Urea Nitrogen 27 mg/dL High 6-24 Creatinine 1.09 mg/dL High 0.51-0.95 BUN/Creatinine Ratio 24.8 High 8-20 Calcium 9.8 mg/dL Normal 8.6-10.3 Egfr Non- 47.8 Normal >60 Egfr 61.5 Normal >60 44 Laboratory test 02/01/2017 [facility] Erythrocyte Sed 50 mm/Hr High 0-40 [address] [place] [address] [phone] CBC Auto Diff 02/01/2017 [facility] White Blood 11.4 High 3.5- 10.[address] Count 10^3/[place] [address] [phone] Red Blood Count 4.96 10^6/uL Normal 4.0-5.4 Hemoglobin 12.8 g/dL Normal 12.0-16.0 Hematocrit 40 % Normal 35-47 Mean Corpuscular Volume 80 fL Normal 80-97 Mean Corpuscular Hemoglobin 26 pg Low 27-31 Mean Corpuscular HGB Conc 32 g/dL Normal 31-36 Red Cell Distribution Width 15 % Normal 10.5-15 Platelet Count 285 10^3/uL Normal 150-450 Mean Platelet Volume 9 um3 Normal 7.4-10.4 Abs Neutrophils 6.9 10^3/uL Normal 1.5-7.7 Abs Lymphocytes 3.5 10^3/uL Normal 1.0-4.8 Abs Monocytes 0.7 10^3/uL Normal 0-0.8 Abs Eosinophils 0.2 10^3/uL Normal 0-0.6 Abs Basophils 0 10^3/uL Normal 0-0.2 Abs Nucleated RBC 0.01 10^3/uL Normal Granulocyte % 60.6 % Normal 38-83 Lymphocyte % 30.9 % Normal 25-47 Monocyte % 6.4 % Normal 1-9 Eosinophil % 1.8 % Normal 0-6 Basophil % 0.3 % Normal 0-2 Nucleated Red Blood Cells % 0 Normal Laboratory test 02/01/2017 [facility] C Reactive 10.67 mg/L High < 5.00 [address] [place] [address] [phone] Laboratory test 11/25/2016 [facility] C Reactive 9.13 mg/L High < 5.00 [address] [place] [address] [phone] Erythrocyte Sed Rate 39 mm/Hr Normal 0-40 48 Laboratory test 09/09/2016 [facility] Erythrocyte Sed 60 mm/Hr High 0-40 [address] [place] [address] [phone] C Reactive Protein 8.27 mg/L High < 5.00 50 CBC Auto 09/09/2016 [facility] White Blood 13.4 10^3/uL High 3.5-10.[address] [place] [address] [phone] Red Blood Count 4.83 10^6/uL Normal 4.0-5.4 Hemoglobin 13.0 g/dL Normal 12.0-16.0 Hematocrit 40 % Normal 35-47 Mean Corpuscular Volume 82 fL Normal 80-97 Mean Corpuscular Hemoglobin 27 pg Normal 27-31 Mean Corpuscular HGB Conc 33 g/dL Normal 31-36 Red Cell Distribution Width 15 % Normal 10.5-15 Platelet Count 313 10^3/uL Normal 150-450 Mean Platelet Volume 8 um3 Normal 7.4-10.4 Abs Neutrophils 8.8 10^3/uL High 1.5-7.7 Abs Lymphocytes 3.3 10^3/uL Normal 1.0-4.8 Abs Monocytes 0.9 10^3/uL High 0-0.8 Abs Eosinophils 0.1 10^3/uL Normal 0-0.6 Abs Basophils 0.1 10^3/uL Normal 0-0.2 Abs Nucleated RBC 0 10^3/uL Normal Granulocyte % 65.9 % Normal 38-83 Lymphocyte % 24.9 % Low 25-47 Monocyte % 7.0 % Normal 1-9 Eosinophil % 1.1 % Normal 0-6 Basophil % 1.1 % Normal 0-2 Nucleated Red Blood Cells % 0 Normal Hla B27 09/09/2016 [facility] Hla B27 Negative Normal [address] [place] [address] [phone] Hla B27 Interp See Comment Normal 52 Vitamin B12 And 09/09/2016 [facility] Vitamin B12 133 pg/mL Low 180-914 53 Folate Serum [address] [place] [address] [phone] Folic Acid (Folate) 12.96 ng/mL Normal >3.99 54 Laboratory test 09/09/2016 [facility] Lyme Disease Negative Normal Negative 55 finding 101 [facility] [place] [address] [phone] Rheumatoid Factor <15 IU/mL Normal <15 56 Anti Nuclear Antibody 0.7 U Normal 57 Magnesium 2.0 mg/dL Normal 1.9-2.7 58 Basic Metabolic 09/09/2016 [facility] Sodium 137 mmol/L Normal 133-145 Panel [address] [place] [address] [phone] Potassium 3.1 mmol/L Low 3.5-5.0 Chloride 102 mmol/L Normal 101-111 Co2 Carbon Dioxide 28 mmol/L Normal 22-32 Anion Gap 7 mmol/L Normal 2-11 Glucose 117 mg/dL High 70-100 Blood Urea Nitrogen 25 mg/dL High 6-24 Creatinine 1.08 mg/dL High 0.51-0.95 BUN/Creatinine Ratio 23.1 High 8-20 Calcium 9.2 mg/dL Normal 8.6-10.3 Egfr Non- 48.5 Normal >60 Egfr 62.3 Normal >60 59 1 Because ethnic data is not always readily available, this report includes an eGFR for both -Americans and non- Americans. The National Kidney Disease Education Program (NKDEP) does not endorse the use of the MDRD equation for patients that are not between the ages of 18 and 70, are , have extremes of body size, muscle mass, or nutritional status, or are non- or non-. According to the National Kid[employer] Foundation, irrespective of diagnosis, the stage of the disease is based on the level of kidney function: Stage Description GFR(mL/min/1.73 m(2)) 1 Kidney damage with normal or decreased GFR 90 2 Kidney damage with mild decrease in GFR 60-89 3 Moderate decrease in GFR 30-59 4 Severe decrease in GFR 15-29 5 Kidney failure <15 (or dialysis) 2 Because ethnic data is not always readily available, this report includes an eGFR for both -Americans and non- Americans. The National Kidney Disease Education Program (NKDEP) does not endorse the use of the MDRD equation for patients that are not between the ages of 18 and 70, are , have extremes of body size, muscle mass, or nutritional status, or are non- or non-. According to the National Kidney Foundation, irrespective of diagnosis, the stage of the disease is based on the level of kidney function: Stage Description GFR(mL/min/1.73 m(2)) 1 Kidney damage with normal or decreased GFR 90 2 Kidney damage with mild decrease in GFR 60-89 3 Moderate decrease in GFR 30-59 4 Severe decrease in GFR 15-29 5 Kidney failure <15 (or dialysis) 3 Test Performed by: [facility] [address] [place] [id number] Red Samuel M.D. Director of Laboratory 4 Because ethnic data is not always readily available, this report includes an eGFR for both -Americans and non- Americans. The National Kidney Disease Education Program (NKDEP) does not endorse the use of the MDRD equation for patients that are not between the ages of 18 and 70, are , have extremes of body size, muscle mass, or nutritional status, or are non- or non-. According to the National Kidney Foundation, irrespective of diagnosis, the stage of the disease is based on the level of kidney function: Stage Description GFR(mL/min/1.73 m(2)) 1 Kidney damage with normal or decreased GFR 90 2 Kidney damage with mild decrease in GFR 60-89 3 Moderate decrease in GFR 30-59 4 Severe decrease in GFR 15-29 5 Kidney failure <15 (or dialysis) 5 Because ethnic data is not always readily available, this report includes an eGFR for both -Americans and non- Americans. The National Kidney Disease Education Program (NKDEP) does not endorse the use of the MDRD equation for patients that are not between the ages of 18 and 70, are , have extremes of body size, muscle mass, or nutritional status, or are non- or non-. According to the National Kidney Foundation, irrespective of diagnosis, the stage of the disease is based on the level of kidney function: Stage Description GFR(mL/min/1.73 m(2)) 1 Kidney damage with normal or decreased GFR 90 2 Kidney damage with mild decrease in GFR 60-89 3 Moderate decrease in GFR 30-59 4 Severe decrease in GFR 15-29 5 Kidney failure <15 (or dialysis) 6 ORDERED:05/11/2018 ENTERED:05/11/2018 :11/10/2018 7 ORDERED:05/11/2018 ENTERED:05/11/2018 :11/10/2018 8 Because ethnic data is not always readily available, this report includes an eGFR for both -Americans and non- Americans. The National Kidney Disease Education Program (NKDEP) does not endorse the use of the MDRD equation for patients that are not between the ages of 18 and 70, are , have extremes of body size, muscle mass, or nutritional status, or are non- or non-. According to the National Kidney Foundation, irrespective of diagnosis, the stage of the disease is based on the level of kidney function: Stage Description GFR(mL/min/1.73 m(2)) 1 Kidney damage with normal or decreased GFR 90 2 Kidney damage with mild decrease in GFR 60-89 3 Moderate decrease in GFR 30-59 4 Severe decrease in GFR 15-29 5 Kidney failure <15 (or dialysis) 9 ORDERED:05/11/2018 ENTERED:05/11/2018 :11/10/2018 10 ORDERED:05/11/2018 ENTERED:05/11/2018 :11/10/2018 11 Because ethnic data is not always readily available, this report includes an eGFR for both -Americans and non- Americans. The National Kidney Disease Education Program (NKDEP) does not endorse the use of the MDRD equation for patients that are not between the ages of 18 and 70, are , have extremes of body size, muscle mass, or nutritional status, or are non- or non-. According to the National Kidney Foundation, irrespective of diagnosis, the stage of the disease is based on the level of kidney function: Stage Description GFR(mL/min/1.73 m(2)) 1 Kidney damage with normal or decreased GFR 90 2 Kidney damage with mild decrease in GFR 60-89 3 Moderate decrease in GFR 30-59 4 Severe decrease in GFR 15-29 5 Kidney failure <15 (or dialysis) 12 STANDING ORDER ORDERED 09/15/17 ENTERED 09/16/17 EXPIRES 03/15/18 13 STANDING ORDER ORDERED 09/15/17 ENTERED 09/16/17 EXPIRES 03/15/18 14 Because ethnic data is not always readily available, this report includes an eGFR for both -Americans and non- Americans. The National Kidney Disease Education Program (NKDEP) does not endorse the use of the MDRD equation for patients that are not between the ages of 18 and 70, are , have extremes of body size, muscle mass, or nutritional status, or are non- or non-. According to the National Kidney Foundation, irrespective of diagnosis, the stage of the disease is based on the level of kidney function: Stage Description GFR(mL/min/1.73 m(2)) 1 Kidney damage with normal or decreased GFR 90 2 Kidney damage with mild decrease in GFR 60-89 3 Moderate decrease in GFR 30-59 4 Severe decrease in GFR 15-29 5 Kidney failure <15 (or dialysis) 15 Acute inflammation: >10.00 16 Because ethnic data is not always readily available, this report includes an eGFR for both -Americans and non- Americans. The National Kidney Disease Education Program (NKDEP) does not endorse the use of the MDRD equation for patients that are not between the ages of 18 and 70, are , have extremes of body size, muscle mass, or nutritional status, or are non- or non-. According to the National Kidney Foundation, irrespective of diagnosis, the stage of the disease is based on the level of kidney function: Stage Description GFR(mL/min/1.73 m(2)) 1 Kidney damage with normal or decreased GFR 90 2 Kidney damage with mild decrease in GFR 60-89 3 Moderate decrease in GFR 30-59 4 Severe decrease in GFR 15-29 5 Kidney failure <15 (or dialysis) 17 Acute inflammation: >10.00 18 STANDING ORDER ORDERED 09/15/17 ENTERED 09/16/17 EXPIRES 03/15/18 19 Desirable: <150 Borderline High: 150-199 High: 200-499 Very High: >500 20 Desirable: <200 Borderline High: 200-239 High: >239 21 Low: <40 Desirable: 40-60 High: >60 22 Desirable: <100 Near Optimal: 100-129 Borderline High: 130-159 High: 160-189 Very High: >189 23 Acute inflammation: >10.00 24 Because ethnic data is not always readily available, this report includes an eGFR for both -Americans and non- Americans. The National Kidney Disease Education Program (NKDEP) does not endorse the use of the MDRD equation for patients that are not between the ages of 18 and 70, are , have extremes of body size, muscle mass, or nutritional status, or are non- or non-. According to the National Kidney Foundation, irrespective of diagnosis, the stage of the disease is based on the level of kidney function: Stage Description GFR(mL/min/1.73 m(2)) 1 Kidney damage with normal or decreased GFR 90 2 Kidney damage with mild decrease in GFR 60-89 3 Moderate decrease in GFR 30-59 4 Severe decrease in GFR 15-29 5 Kidney failure <15 (or dialysis) 25 Acute inflammation: >10.00 26 Q26#[id number]_ STANDING ORDER ORDERED 09/15/17 ENTERED 09/16/17 EXPIRES 03/15/18 27 Acute inflammation: >10.00 28 Because ethnic data is not always readily available, this report includes an eGFR for both -Americans and non- Americans. The National Kidney Disease Education Program (NKDEP) does not endorse the use of the MDRD equation for patients that are not between the ages of 18 and 70, are , have extremes of body size, muscle mass, or nutritional status, or are non- or non-. According to the National Kidney Foundation, irrespective of diagnosis, the stage of the disease is based on the level of kidney function: Stage Description GFR(mL/min/1.73 m(2)) 1 Kidney damage with normal or decreased GFR 90 2 Kidney damage with mild decrease in GFR 60-89 3 Moderate decrease in GFR 30-59 4 Severe decrease in GFR 15-29 5 Kidney failure <15 (or dialysis) 29 Because ethnic data is not always readily available, this report includes an eGFR for both -Americans and non- Americans. The National Kidney Disease Education Program (NKDEP) does not endorse the use of the MDRD equation for patients that are not between the ages of 18 and 70, are , have extremes of body size, muscle mass, or nutritional status, or are non- or non-. According to the National Kidney Foundation, irrespective of diagnosis, the stage of the disease is based on the level of kidney function: Stage Description GFR(mL/min/1.73 m(2)) 1 Kidney damage with normal or decreased GFR 90 2 Kidney damage with mild decrease in GFR 60-89 3 Moderate decrease in GFR 30-59 4 Severe decrease in GFR 15-29 5 Kidney failure <15 (or dialysis) 30 Acute inflammation: >10.00 31 Acute inflammation: >10.00 32 Acute inflammation: >10.00 33 Please check 2 days before follow up 34 Normal Range 180 to 914 Indeterminate Range 145 to 180 Deficient Range <145 35 Please check 2 days before follow up 36 Because ethnic data is not always readily available, this report includes an eGFR for both -Americans and non- Americans. The National Kidney Disease Education Program (NKDEP) does not endorse the use of the MDRD equation for patients that are not between the ages of 18 and 70, are , have extremes of body size, muscle mass, or nutritional status, or are non- or non-. According to the National Kidney Foundation, irrespective of diagnosis, the stage of the disease is based on the level of kidney function: Stage Description GFR(mL/min/1.73 m(2)) 1 Kidney damage with normal or decreased GFR 90 2 Kidney damage with mild decrease in GFR 60-89 3 Moderate decrease in GFR 30-59 4 Severe decrease in GFR 15-29 5 Kidney failure <15 (or dialysis) 37 Please check labs 2 days before follow up 38 Acute inflammation: >10.00 39 SEE RESULT BELOW Name: ZOE ROE : [address]: Francois Mae MD Acct: [id number] Unit: [id number] AGE: 82 Location: [facility] Re05/13/17 SEX: F Status: REG REF SPEC: [id number] RONAK: 05/13/17-[address] [facility] [address]: Francois Mae MD REQ: [id number] RECD: 05/13/17 STATUS: KEYON RODRIGUEZ DR: Sabino Nails MD _ ORDERED: LEVEL 4 COMMENTS: [id number] FINAL DIAGNOSIS Temporal artery, left, biopsy: -- Benign arterial tissue with calcific atherosclerosis and no other significant pathologic abnormalities; see comment. COMMENT: Histologic sections show arterial tissue with an intact internal elastic lamina, microcalcifications involving the intima, and no evidence of a significant inflammatory infiltrate. 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 Clinical-pathologic correlation is recommended. PRE-OPERATIVE DIAGNOSIS Left temporal artery biopsy GROSS DESCRIPTION The specimen is received in formalin labeled, Left Temporal Artery Biopsy, and consists of a 4.2 x 0.2 x 0.1 cm red-lance tubular rubbery tissue fragment with a 2.3 x 0.1 x 0.1 cm collateral 1.0 cm from the nearest end. The specimen is inked, serially sectioned and entirely submitted in cassettes A and B as follows: A-main artery and B- collateral. Signed (signature on file) Jennifer Hawley MD 01/26 0932 END OF REPORT * ML=Testing performed at Main Lab DEPARTMENT OF PATHOLOGY, [address] [place] [address] Red Samuel M.D. Director [facility] # [id number] 40 Please check today 41 Acute inflammation: >10.00 42 Normal Range 180 to 914 Indeterminate Range 145 to 180 Deficient Range <145 43 Please check today 44 Because ethnic data is not always readily available, this report includes an eGFR for both -Americans and non- Americans. The National Kidney Disease Education Program (NKDEP) does not endorse the use of the MDRD equation for patients that are not between the ages of 18 and 70, are , have extremes of body size, muscle mass, or nutritional status, or are non- or non-. According to the National Kidney Foundation, irrespective of diagnosis, the stage of the disease is based on the level of kidney function: Stage Description GFR(mL/min/1.73 m(2)) 1 Kidney damage with normal or decreased GFR 90 2 Kidney damage with mild decrease in GFR 60-89 3 Moderate decrease in GFR 30-59 4 Severe decrease in GFR 15-29 5 Kidney failure <15 (or dialysis) 45 Please check 2 days before follow up 46 Acute inflammation: >10.00 47 Acute inflammation: >10.00 48 Please check 2 days before the visit 49 Please check this week 50 Acute inflammation: >10.00 51 REFERENCE VALUE Not Applicable 52 RESULT: HLA-B27 antigen was not detected. ADDITIONAL INFORMATION Method: Flow Cytometry Performing Laboratory CLIA# [id number] Test Performed by: [place] [address] Coppersmith Helper: Gustavo Fisher II, M.D., Ph.D. 53 Normal Range 180 to 914 Indeterminate Range 145 to 180 Deficient Range <145 54 Please check this week 55 Serologic response to B. burgdorferi infection is not detected, but cannot rule out early infection during which low or undetectable antibody levels to B. burgdorferi may be present. If clinically indicated, a new serum specimen should be submitted in 7-14 days. Test Performed by: [place] [address] Coppersmith Helper: Gustavo Fisher II, M.D., Ph.D. 56 Test Performed by: [place] [address] Coppersmith Helper: Gustavo Fisher II, M.D., Ph.D. 57 REFERENCE VALUE <=1.0 (Negative) Test Performed by: [place] [address] Coppersmith Helper: Gustavo Fisher II, M.D., Ph.D. 58 Please check this week 59 Because ethnic data is not always readily available, this report includes an eGFR for both -Americans and non- Americans. The National Kidney Disease Education Program (NKDEP) does not endorse the use of the MDRD equation for patients that are not between the ages of 18 and 70, are , have extremes of body size, muscle mass, or nutritional status, or are non- or non-. According to the National Kidney Foundation, irrespective of diagnosis, the stage of the disease is based on the level of kidney function: Stage Description GFR(mL/min/1.73 m(2)) 1 Kidney damage with normal or decreased GFR 90 2 Kidney damage with mild decrease in GFR 60-89 3 Moderate decrease in GFR 30-59 4 Severe decrease in GFR 15-29 5 Kidney failure <15 (or dialysis) Procedures Date Code Description Status 05/13/2017 20504 Ligation Or Biopsy Temporal Artery Completed 07/26/2016 190540042 Bone Mineral Density Test Completed 12/09/2014 86422 ECHO Transthoracic, Real-Time 2D With Doppler And Completed Color Flow 12/04/2014 41038 Stress Test Completed 12/04/2014 88743 Myocardial Perfusion Imaging Tomographic (Spect) Completed Multiple Studies 11/29/2014 46001 EKG Tracing & Interpretation Completed 07/05/2014 [id number] Bone Mineral Density Test Completed 09/25/2013 64217 EKG, Interpretation Only Completed 11/24/2012 274096169 Bone Mineral Density Test Completed Encounters Type Date Location Provider Dx Diagnosis Office Visit 12/11/2018 Rheumatology Adrianna Costa5.3 Polymyalgia 3:00p [facility] DELI COOK rheumatica Ccmob 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, bilateral Office Visit 10/24/2018 8:30a Rheumatology Seraofineil M35.3 Polymyalgia [facility] Jim, DELI COOK rheumatica M16.9 Osteoarthritis of hip, unspecified M47.816 Spondylosis w/o myelopathy or radiculopathy, lumbar region Z79.899 Other tank terminal gauger (current) drug therapy H57.12 Ocular pain, left eye M16.0 Bilateral primary osteoarthritis of hip Office Visit 08/10/2018 1:00p Rheumatology Seraofia M35.3 Polymyalgia [facility] Jim, DELI COOK rheumatica Ccmob Z79.52 nursing home (current) use of systemic steroids M25.512 Pain in left shoulder M79.622 Pain in left upper arm R53.83 Other fatigue Office Visit 07/10/2018 9:30a Rheumatology Zsofia M35.3 Polymyalgia [facility] Jim, DELI COOK rheumatica Ccmob M85.89 Oth disrd of bone density and structure, multiple sites R79.82 Elevated C-reactive protein (CRP) E53.9 Vitamin B deficiency, unspecified Z79.52 tank terminal gauger (current) use of systemic steroids Office Visit 05/11/2018 9:00a Rheumatology Zsofia M35.3 Polymyalgia [facility] Jim, DELI COOK rheumatica Ccmob E53.9 Vitamin B deficiency, unspecified Z79.52 tank terminal gauger (current) use of systemic steroids E53.8 Deficiency of other specified B group vitamins Office Visit 03/30/2018 8:00a Rheumatology Zsofia M35.3 [facility]ym[facility]algia [facility] rheumatica Ccmob Z79.52 tank terminal gauger (current) use of systemic steroids R79.82 Elevated C-reactive protein (CRP) D72.829 Elevated white blood cell count, unspecified Office Visit 02/27/2018 10:00a Rheumatology Zsofia M35.3 [facility] rheumatica Ccmob Z79.52 tank terminal gauger (current) use of systemic steroids E53.9 Vitamin B deficiency, unspecified L65.9 Nonscarring hair loss, unspecified Office Visit 01/23/2018 10:00a Rheumatology Zsofia M35.3 [facility] rheumatica Ccmob R79.82 Elevated C-reactive protein (CRP) Z79.52 nursing home (current) use of systemic steroids Office Visit 01/09/2018 10:30a Rheumatology Zsofia M35.3 [facility] rheumatica Ccmob R79.82 Elevated C-reactive protein (CRP) M54.2 Cervicalgia M25.559 Pain in unspecified hip M54.5 Low back pain Office Visit 12/12/2017 9:30a Rheumatology Zsofia M35.3 [facility] rheumatica Ccmob R79.82 Elevated C-reactive protein (CRP) Z79.52 tank terminal gauger (current) use of systemic steroids K57.92 Dvtrcli of intest, part unsp, w/o perf or abscess w/o bleed Office Visit 10/20/2017 10:00a Rheumatology Zsofia M35.3 [facility] rheumatica Ccmob R79.82 Elevated C-reactive protein (CRP) Z79.52 nursing home (current) use of systemic steroids M85.89 Oth disrd of bone density and structure, multiple sites Office Visit 09/15/2017 11:00a Rheumatology Zsofia M35.3 [facility] rheumatica Ccmob R79.82 Elevated C-reactive protein (CRP) E53.9 Vitamin B deficiency, unspecified Z79.52 nursing home (current) use of systemic steroids Office Visit 07/28/2017 4:20p Rheumatology Mirza Chauhan.3 Polymyalgia [facility] [place] Nails M.D. rheumatica R79.82 Elevated C-reactive protein (CRP) A88.1 Epidemic vertigo M85.89 Oth disrd of bone density and structure, multiple sites Office Visit 06/15/2017 11:40a Rheumatology Mirza Chauhan.3 Polymyalgia [facility] [place] Nails M.D. rheumatica R79.82 Elevated C-reactive protein (CRP) D72.829 Elevated white blood cell count, unspecified E53.9 Vitamin B deficiency, unspecified Z79.52 nursing home (current) use of systemic steroids M85.89 Oth disrd of bone density and structure, multiple sites Office Visit 05/11/2017 8:40a Rheumatology Mirza Chauhan.3 Polym[facility]algia [facility] [place] Nails M.D. rheumatica R79.82 Elevated C-reactive protein (CRP) D72.829 Elevated white blood cell count, unspecified E53.9 Vitamin B deficiency, unspecified Z79.52 nursing home (current) use of systemic steroids Office Visit 02/08/2017 9:00a Rheumatology Mirza Chauhan.3 Polym[facility]algia [facility] [place] Nails M.D. rheumatica R79.82 Elevated C-reactive protein (CRP) D72.829 Elevated white blood cell count, unspecified E53.9 Vitamin B deficiency, unspecified Office Visit 12/06/2016 11:00a Rheumatology Mirza Rodas5.3 Polym[facility]algia [facility] [place] Nails M.D. rheumatica R79.82 Elevated C-reactive protein (CRP) D72.829 Elevated white blood cell count, unspecified E53.9 Vitamin B deficiency, unspecified Office Visit 10/06/2016 3:40p Rheumatology Mirza Rodas5.3 [facility] [place] Nails M.D. rheumatica R79.82 Elevated C-reactive protein (CRP) D72.829 Elevated white blood cell count, unspecified E53.9 Vitamin B deficiency, unspecified Office Visit 09/08/2016 9:00a Rheumatology Mirza Rodas5.3 Polym[facility]algia [facility] [place] Nails M.D. rheumatica R79.82 Elevated C-reactive protein (CRP) M25.572 Pain in left ankle and joints of left foot M25.571 Pain in right ankle and joints of right foot R25.2 Cramp and spasm D72.829 Elevated white blood cell count, unspecified R20.8 Other disturbances of skin sensation Office Visit 01/31/2015 8:15a [facility] Ed Brown 786.50 Pain Chest Of [facility] Orozco M.D. Unspec 794.31 Electrocardiogram (ECG) (EKG) Abnormal Office Visit 11/29/2014 1:00p [facility] Ed D. 401.9 Hypertension Of [facility] Orozco M.D. Unspec 794.31 Electrocardiogram (ECG) (EKG) Abnormal 786.50 Pain Chest Unspec Plan of Treatment 04/12/2019 - Christiane Fernandez, FNPM35.3 Polymyalgia rheumaticaComments:This seem to be in remission.No need ot take prednisone as you do not have systemic inflammation.Youmay take Tylenol or Advil as needed.Please call with any problems or complains.Follow up:as qwkzuaX26.331 Trigger finger, right middle fingerComments:Trigger finger:The goal of treatment is to eliminate the swelling and catching/locking thereby allowing full movement of the finger.Common treatments include, but are not limited to:Night splintsAnti- inflammatory medicationChanging your activitySteroid injection (which you tolerated well today)Pleasecall if you would like referral to orthopedics for injection of the fingerSurgery:If non-surgical treatments do not relieve the symptoms, surgery may be recommended. The goal of surgery is to release the kentrell at the base of the finger so that the tendon can glide more freely. The clicking or poppinggoes away first. Finger motion can return quickly, or there can be some stiffness after surgery. Occasionally, hand therapy is required after surgery to regain better use.
--- OUTSIDE RECORDS SUMMARY | 2019-04-27 07:12 | XMS REPORT | Continuity of Care Document ---
:1935 External Reference #:[id number] Author Name Sabino Babcock M.D. Address [address] [place] [address] Care Team Providers Name Role Phone [facility] - Diagnostic Care Team Information Compensation Associate [facility]-DR Zamarripa Care Team Information Compensation Associate Bang - Parking Attendant Sabino Babcock MD - Family Medicine Care Team Information Compensation Associate [phone] Problems Active Problems Provider Date Hyperlipidemia Sabino Babcock M.D. Onset: 10/30/2007 Benign essential hypertension Sabino Babcock M.D. Onset: 09/24/2011 Hypothyroidism Sabino Babcock M.D. Onset: 09/24/2011 Multiple joint pain Sabino Babcock M.D. Onset: 05/07/2013 Polymyalgia rheumatica Sabino Babcock M.D. Onset: 05/20/2016 Idiopathic progressive polyneuropathy Sabino Babcock M.D. Onset: 2016 Osteochondropathy Sabino Babcock M.D. Onset: 04/23/2019 Aortic valve disorder Sabino Babcock M.D. Onset: 04/23/2019 Social History Type Date Description Comments Sex Unknown Tobacco Use Start: Unknown Never Smoked Cigarettes ETOH Use Never used alcohol Tobacco Use Start: Unknown Patient has never smoked Smoking Status Reviewed: 12/22/18 Patient has never smoked Allergies, Adverse Reactions, Alerts Active Allergies Reaction Severity Comments Date Sulfa Drugs 12/19/1997 Amoxil,Trimox 08/04/1999 Statins aching 05/20/2013 Medications Active Medications SIG Qnty Indications Ordering Provider Date Tolterodine Tartrate Take One Capsule 90caps Sabino NorthSarwat Babcock, 01/26/2019 ER By Mouth Every M.D. 2mg Caps ER 24HR Day Triamterene/Hydrochlo Take One Capsule 90caps Sabino Mary AnneSarwat Babcock, 2018 rothiazide By Mouth Every M.D. 37.5-25mg Day as Needed Capsules Synthroid Take One Tablet 90tabs Sabino Mary AnneSarwat Babcock, 04/09/2013 100mcg By Mouth Every M.D. Tablets Day Vagifem twice a week Sabino Mary AnneSarwat Suryaapurva, 25mcg Tablets M.D. Vitamin D 1 by mouth every Sabino Mary AnneSarwat Babcock, 1000Unit day M.D. Tablets Acyclovir 1 by mouth qd Sabino Mary AnneSarwat Babcock, 200mg M.D. Capsules Vitamin B12 2 by mouth every Sabino Mary AnneSarwat Babcock, 1000mcg day M.D. Tablets ER Artificial Tears bid Unknown 1-0.3% Solution Medications Administered in Office Medication SIG Qnty Indications Ordering Provider Date Injection Subcutaneous Or Unknown 01/02/2018 Intramuscular Injection B-12 Injection Sabino Babcock M.D. 09/23/2016 Injection Injection Subcutaneous Or Sabino Babcock M.D. 09/23/2016 Intramuscular Injection Immunizations CPT Code Status Date Vaccine Lot # [id number] Given 06/13/2018 High-Dose, Influenza Virus Vacccine-fluzone 65 and older 14332 Given 08/25/2015 Pneumococcal Conjugate Vacc-13 [id number] Q2038 Given 06/14/2014 Split Influenza Medicare: Fluzone [id number] 71424 Given 06/20/2013 DO Not Use Split Influenza Virus Vaccine 45496 Given 06/08/2012 DO Not Use Split Influenza Virus Vaccine 14602 Given 04/13/2012 Tdap Tetanus, W Pertussis [id number] Q2038 Given 05/24/2011 Split Influenza Medicare: Fluzone [id number] 02646 Given 07/10/2010 DO Not Use Split Influenza Virus Vaccine [id number] 43553 Given 07/07/2009 DO Not Use Split Influenza Virus Vaccine 68485 Given 06/03/2008 DO Not Use Split Influenza Virus Vaccine [id number] 33148 Given 07/14/2007 Zostivax [id number] 77394 Given 07/08/2007 DO Not Use Split Influenza Virus Vaccine [id number] 05584 Given 06/24/2006 DO Not Use Split Influenza Virus Vaccine 49020 01151 Given 06/28/2005 DO Not Use Split Influenza Virus Vaccine 53386 Given 07/20/2004 Td Immunization, For Use In Individuals 7 Years Or Older 31171 Given 07/16/2004 DO Not Use Split Influenza Virus Vaccine 84407 Given 07/17/2001 Pneumococcal Immunization Vital Signs Date Vital Result Comment 04/23/2019 3:50pm BP Systolic 130 mmHg BP Diastolic 70 mmHg Heart Rate 80 /min Body Temperature 98.2 F Respiratory Rate 16 /min Weight 149.00 lb 12/22/2018 10:48am BP Systolic 124 mmHg BP Diastolic 66 mmHg Heart Rate 64 /min Body Temperature 97.5 F Respiratory Rate 12 /min Height 60 inches 5'0" Weight 147.00 lb BMI (Body Mass Index) 28.7 kg/m2 Results Test Date Facility Test Result H/L Range Note Laboratory test 04/23/2019 [facility](fma) TSH <pending> 0.5-5.0 finding Free T4 <pending> 0.75-1.54 Poc Urinalysis 12/17/2018 [facility] Poc Glucose, Urine Negative Negative Poc Bilirubin, Urine Negative Negative Poc Ketone, Urine Negative Negative Poc Specific [place], Urine 1.020 N 1.010-1.030 Poc Blood, Urine 3+ Abnormal Negative Poc pH, Urine 6.0 N 5-9 Poc Protein, Urine 1+ Abnormal Negative Poc Urobilinogen, Urine 0.2 Negative Poc Nitrite, Urine Negative Negative Poc Leukocytes, Urine 3+ Abnormal Negative Poc Color, Urine Yellow Poc Clarity, Urine Cloudy 1 Urine Culture And 12/17/2018 [facility] Urine Culture SEE RESULT BELOW 2, 3 Sensitivities 1 Dough Maker: [id number] SEE RESULT BELOW Name: ZAMZAM,ZOE : [address]: Carla Purdy MD Acct: [id number] Unit: [id number] AGE: 83 Location: [facility] Re12/17/18 SEX: F Status: DEP ER SPEC: [id number] RONAK: 12/17/[address] [facility] [address]: Carla Purdy MD REQ: [id number] RECD: 12/17/18-1016 STATUS: COMP BALAJIHR DR: Sabino Babcock MD _ SOURCE: URINE SPDESC: ORDERED: Urine Culture COMMENTS: [id number] Procedure Result Reported Site Urine Culture Final 12/18/18- 1136 ML No growth of clinically significant organisms * ML - Main Lab . END OF REPORT DEPARTMENT OF PATHOLOGY, [address] [place] [address] Red Samuel M.D. Director [facility] # [id number] Procedures Date Code Description Status 12/22/2018 44515 Remove Impact Cerumen Irrigati Completed 07/19/2018 [id number] Mammogram Completed 06/12/2018 [id number] Mammogram Completed 06/24/2017 [id number] Mammogram Completed 07/26/2016 571764848 Bone Mineral Density Test Completed 06/04/2016 [id number] Mammogram Completed 05/29/2015 [id number] Mammogram Completed 03/18/2014 [id number] Mammogram Completed 01/10/2013 82908583 Mammogram Completed 01/10/2012 [id number] Mammogram Completed 01/06/2011 75324205 Mammogram Completed 08/16/2008 90188156 Mammogram Completed 08/15/2007 63917681 Mammogram Completed 07/14/2006 [id number] Mammogram Completed 08/12/2005 11790856 Colonoscopy Completed Medical Devices Description No Information Available Encounters Type Date Location Provider Dx Diagnosis Office Visit 12/22/2018 [facility][1] Office Ella Blanc R21 Rash and other 10:30a CAMI Dumont nonspecific skin eruption N39.0 Urinary tract infection, site not specified H61.23 Impacted cerumen, bilateral Assessments Date Code Description Provider 04/23/2019 E03.9 Hypothyroidism, unspecified Sabino Babcock M.D. 04/23/2019 I35.8 Other nonrheumatic aortic valve disorders Sabino Babcock M.D. 04/23/2019 I10 Essential (primary) hypertension Sabino Babcock M.D. 04/23/2019 M85.89 Other specified disorders of bone density Sabino Babcock M.D. and structure, multiple sites 12/22/2018 R21 Rash and other nonspecific skin eruption Ella Dumont NP 12/22/2018 N39.0 Urinary tract infection, site not specified Ella Dumont NP 12/22/2018 H61.23 Impacted cerumen, bilateral Ella Jayashree Dumont NP Plan of Treatment Future Appointment(s):10/29/2019 10:00 am - Sabino Babcock M.D. at [facility][1] [place]4/23/2019 - Sabino Babcock M.D.E03.9 Hypothyroidism, unspecifiedComments:continue thyroid medication , and recheck thyroid function testsFollow up:Followup:. (Follow up)I35.8 Other nonrheumatic aortic valve disordersComments:workup in 2014 was normal, echo normal, will repeat an echo nowI10 Essential (primary) hypertensionComments:continue current medication , call if bp elevation is persistent above 140/90M85.89 Other specified disorders of bone density and structure, multiple sitesComments:Patient has mild osteopenia in the hips, repeat DEXA scan given previous use of prednisoneAllComments:Medication Management Patient Understands medications she' s taking? Yes No Are there Barriers to Adherence? Yes No Has the patient been asked about herbal supplements and therapies, and OTC meds? Yes No Patient has been doing well. No longer has symptoms of polymyalgia and uses Aleve sparingly - will also consider the use of Tylenol 500 mg 3 times a day to help relieve joint achiness. She needs a mammogram in July of 2019. Blood pressure has been well-controlled on present dose of Dyazide. Repeat thyroid lab work on present dose of levothyroxine. Patient has a soft aortic murmur, echocardiogram in 2014 was normal, repeat echo. Patient will obtain a flu shot in the fall, return in 6 months, stool Hemoccults were given Functional Status Description No Information Available Mental Status Description No Information Available Referrals Description No Information Available
--- OUTSIDE RECORDS SUMMARY | 2019-04-27 07:12 | XMS REPORT | Continuity of Care Document ---
:1935 External Reference #:[id number] Author Name Loly De La Cruz O.D. Address [address] [place] [address] Care Team Providers Name Role Phone Sabino Babcock M.D. - Internal Care Team Information Guest Services Associate Medicine Mirza Nails MD - Rheumatology Care Team Information Guest Services Associate Problems Active Problems Provider Date Essential hypertension Loly De La Cruz O.D. Onset: 01/06/2015 Hypercholesterolemia Loly De La Cruz O.D. Onset: 01/06/2015 Hypothyroidism Loly De La Cruz O.D. Onset: 01/06/2015 Primary fibromyalgia syndrome Loly De La Cruz O.D. Onset: 01/06/2015 Osteopenia Loly De La Cruz O.D. Onset: 01/06/2015 Bilateral hearing loss Loly De La Cruz O.D. 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 Onset: 2014 as Sjogren's Herpesviral keratitis Mirza Damon M.D. Onset: 07/08/2015 Presence of intraocular lens Mirza Damon M.D. Onset: 07/08/2015 Viral conjunctivitis Juarez Hennessy M.D. Onset: 03/24/2017 Tear film insufficiency Loly De La Cruz O.D. Onset: 08/03/2017 Diverticulitis Onset: Arthritis Onset: Hearing loss Onset: Corneal opacity Loly De La Cruz O.D. Onset: 04/25/2019 Polymyalgia rheumatica Loly De La Cruz O.D. Onset: 04/25/2019 Angular blepharoconjunctivitis Loly De La Cruz O.D. Onset: 04/25/2019 Social History Type Date Description Comments Sex Unknown ETOH Use Denies alcohol use Tobacco Use Start: Unknown Patient has never smoked Recreational Drug Use Denies Drug Use Smoking Status Reviewed: 04/25/19 Patient has never smoked Allergies, Adverse Reactions, Alerts Active Allergies Reaction Severity Comments Date Amoxicillin HIVES 01/06/2015 Medications Active Medications SIG Qnty Indications Ordering Provider Date Erythromycin apply thin strip 1Tube H10.523 Loly Hernandez 04/25/2019 5mg/GM to all four Vic De La Cruz Ointment eyelid margins x every night for 2-3 weeks Refresh Optive several times a 30ml Loly Hernandez 04/24/2019 0.5-0.9% day Vic De La Cruz Solution Synthroid Unknown 100mcg Tablets Detrol LA Unknown 2mg Caps ER 24HR Triamterene/Hydrochlor Unknown othiazide 37.5-25mg Capsules Vagifem Unknown 10mcg Tablets Vitamin D every day Unknown 2000Unit Tablets Acyclovir take one capsule Unknown 200mg Capsules by mouth every day Immunizations Description No Information Available Vital Signs Description No Information Available Results Description No Information Available Procedures Description No Information Available Medical Devices Description No Information Available Encounters Description No Information Available Assessments Date Code Description Provider 04/25/2019 H04.123 Dry eye syndrome of bilateral lacrimal Loly De La Cruz O.D. glands 04/25/2019 H10.523 Angular blepharoconjunctivitis, bilateral Loly De La Cruz O.D. 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 04/25/2019 Z96.1 Presence of intraocular lens Loly De La Cruz O.D. 04/25/2019 M35.3 Polymyalgia rheumatica Loly De La Cruz O.D. Plan of Treatment 04/25/2019 - Loly De La Cruz O.D.H04.123 Dry eye syndrome of bilateral lacrimal glandsFollow up:6 Month Follow Up CEE/ MR You can expect to have your eyes dilated at your next visit. If Dr. De La Cruz orders any additional testing, it may require extra time. We recommend that you bring sunglasses,as dilation drops often make you light sensitive until they wear off. We always recommend you bring someone to drive you home if you are uncomfortable driving with your eyes dilated. If you have any questions before your next visit, feel free to call our office at .H16.542 Angular blepharoconjunctivitis, bilateralNew Medication:Erythromycin 5 mg/GM - apply thin strip to all four eyelid margins x every night for 2-3 weeksComments:USE OINTMENT AT BEDTIME FOR 2 -3 WEEKS. HOT COMPRESS WITH LID SCRUB 5LBFDV59.89 Other corneal scars and pldmiooytB60.1 Presence of intraocular lensComments:The artificial lens implants in both eyes appear to be stable at this time.M35.3 Polymyalgia rheumatica Functional Status Description No Information Available Mental Status Description No Information Available Referrals Description No Information Available
[2019-04-27 07:22] VITALS: BP 144/73
--- NOTE | 2019-04-27 07:52 | UC ---
Complaint Female HPI - HPI Summary HPI Summary: 84-year-old woman comes in with a chief complaint of urinary urgency burning with urination and hematuria that started this morning. Did have some cramping in the suprapubic region. Denies any flank pain. Denies any fevers or chills. Patient does have a history of diverticulitis but denies any prior abdominal pain and states her bowels have been normal. Patient's had a urinary tract infection in the past and she states that this feels like. She did take a single dose of Cipro and Pyridium this morning which she vomited. - History Of Current Complaint Chief Complaint: UCGU Stated Complaint: BURNING FREQUENT URINATION WITH PRESSURE Time Seen by Provider: 04/27/19 07:41 Pain Intensity: 4 - Allergies/Home Medications Allergies/Adverse Reactions: Allergies Allergy/AdvReac Type Severity Reaction Status Date / Time amoxicillin Allergy Hives Verified 04/27/19 07:22 Sulfa (Sulfonamide Allergy Hives Verified 04/27/19 07:22 Antibiotics) Home Medications: Home Medications Ciprofloxacin HCl [Cipro] 500 mg PO ONCE 04/27/19 [History Confirmed 04/27/19] Phenazopyridine TAB* [Pyridium TAB*] 200 mg PO ONCE 04/27/19 [History Confirmed 04/27/19] PMH/Surg Hx/FS Hx/Imm Hx Previously Healthy: Yes Endocrine History: Hypothyroidism Cardiovascular History: Hypertension - Surgical History Surgical History: Yes Surgery Procedure, Year, and Place: OOPHERECTOMY RIGHT,BENIGN BREAST BIOPSIES, WRIST GANGLION CYST, APPENDECTOMY - Family History Known Family History: Positive: Hypertension - Social History Alcohol Use: None Substance Use Type: None Smoking Status (MU): Former Smoker When Did the Patient Quit Smoking/Using Tobacco: 50 years ago Review of Systems All Other Systems Reviewed And Are Negative: Yes Constitutional: Positive: Negative Skin: Positive: Negative Eyes: Positive: Negative ENT: Positive: Negative Respiratory: Positive: Negative Cardiovascular: Positive: Negative Gastrointestinal: Positive: Abdominal Pain, Vomiting Genitourinary: Positive: Dysuria, Hematuria, Frequency, Urgency Motor: Positive: Negative Neurovascular: Positive: Negative Musculoskeletal: Positive: Negative Neurological: Positive: Negative Psychological: Positive: Negative Is Patient Immunocompromised?: No Physical Exam Triage Information Reviewed: Yes Appearance: Well-Appearing, No Pain Distress, Well-Nourished Vital Signs: Initial Vital Signs Temp 97.1 F 04/27/19 07:15 Pulse 72 04/27/19 07:15 Resp 16 04/27/19 07:15 BP 144/73 04/27/19 07:15 Pulse Ox 97 04/27/19 07:15 Vital Signs Reviewed: Yes Eye Exam: Normal Eyes: Positive: Conjunctiva Clear Neck: Positive: Supple Respiratory: Positive: Lungs clear, Normal breath sounds, No respiratory distress Cardiovascular: Positive: RRR Abdomen Description: Positive: Nontender, Soft. Negative: CVA Tenderness (R), CVA Tenderness (L) Musculoskeletal: Positive: Strength Intact, ROM Intact Neurological: Positive: Alert Psychological: Positive: Age Appropriate Behavior Skin Exam: Normal Complaint Female Dx - Differential Dx/Diagnosis Provider Diagnosis: UTI (urinary tract infection) Discharge - Sign-Out/Discharge Documenting (check all that apply): Patient Departure All imaging exams completed and their final reports reviewed: No Studies - Discharge Plan Condition: Stable Disposition: HOME Prescriptions: Ciprofloxacin TAB* [Cipro 500 MG TAB*] 500 mg PO BID #10 tab Patient Education Materials: Urinary Tract Infection in Women (ED) Referrals: Sabino Babcock MD [Primary Care Provider] - Additional Instructions: FOLLOW UP WITH YOUR DOCTOR IF NOT COMPLETELY IMPROVED. GET RECHECKED SOONER IF YOUR CONDITION WORSENS OR ANY QUESTIONS OR CONCERNS. - Billing Disposition and Condition Condition: STABLE Disposition: Home
== END 2019-04-27 07:57 | disposition home or self-care (01) ==
LOC: UCEAST 07:06
DX: N39.0 Urinary tract infection, site not specified (principal); R31.9 Hematuria, unspecified; Z87.440 Personal history of urinary (tract) infections; R11.10 Vomiting, unspecified; I10 Essential (primary) hypertension; Z88.0 Allergy status to penicillin; Z88.2 Allergy status to sulfonamides; Z87.891 Personal history of nicotine dependence
CPT/HCPCS: 87086; 99212; G0463